=== PATIENT | male | born 1970 | race Caucasian/White ===

== ENCOUNTER 2019-01-01 16:35 | Observation (INO) ==
[2019-01-01] MEDS ORDERED: ZOFRAN IV PRN (17:09)
[2019-01-01 17:29] LABS: BASO# 0.01 X1000 (0.0-0.2); BASO% 0.1 % (0.0-0.8); EOS# 0.08 X1000 (0.0-0.7); HEMATOCRIT 46.5 % (42.0-52.0); HEMOGLOBIN 15.6 g/dL (14.0-18.0); IMM GRAN# 0.02 X1000 (0.0-0.04); IMM GRAN% 0.3 % (0.0-0.5); LYMPH% 11.5 % (20.5-51.1); MCH 32.8 PG (27-31); MCHC 33.5 g/dL (33-37); MCV 97.9 FL (81-99); MONO# 0.67 X1000 (0.11-0.59); MONO% 8.5 % (1.7-9.3); MPV 10.2 FL (7.4-10.4); NEUT# 6.16 X1000 (1.4-6.5); NEUT% 78.6 % (42.2-75.2); PLT 219 X1000 (130-400); RBC 4.75 XMIL (4.7-6.1); RDW 12.8 % (11.5-14.5); WBC 7.84 X1000 (4.8-10.8)
[2019-01-01 17:55] LABS: ALB/GLOB RATIO 1.4; ALBUMIN 3.8 g/dL (3.5-5.0); CALCIUM 8.9 mg/dL (8.8-10.2); CREATININE 1.5 mg/dL (0.7-1.2); DIRECT BILIRUBIN 0.2 mg/dL (0.00-0.20); MAGNESIUM 1.6 mg/dL (1.5-2.7); POTASSIUM 4.5 mmol/L (3.5-5.1); TOTAL BILIRUBIN 1.02 mg/dL (0.20-1.00); TOTAL PROTEIN 6.5 g/dL (6.3-8.3)
[2019-01-01] MEDS ORDERED: OFIRMEV 1000 MG/ISOTONIC SOLN 1,000 MG/100 ML BOTTLE IV PRN (18:03)
[2019-01-01] MEDS: LR 1,000 ML IV SCH (18:07)
[2019-01-01] MEDS ORDERED: PROTONIX IV ONE (18:15)
[2019-01-01] MEDS ORDERED: SODIUM CHLORIDE 0.9% INJ ONE (18:30)
[2019-01-01 18:55] LABS: URINE SOURCE CLEAN CATCH
[2019-01-01 18:58] LABS: BILIRUBIN URINE SMALL (NEGATIVE); BLOOD URINE NEGATIVE (NEGATIVE); COLOR YELLOW; GLUCOSE URINE NEGATIVE (NEGATIVE); KETONE URINE 10 mg/dL (NEGATIVE); LEUKOCYTES URINE NEGATIVE (NEGATIVE); NITRITE URINE NEGATIVE (NEGATIVE); PROTEIN URINE 100 mg/dL (NEGATIVE); SP GRAVITY URINE 1.026; TURBIDITY URINE CLEAR (CLEAR); UR EPITHELIAL CELLS <10 /HPF (<10); URINE BACTERIA NEGATIVE /HPF; URINE RBC <10 /HPF (<10); URINE WBC <10 /HPF (<10); UROBILINOGEN URINE NORMAL (NORMAL)
--- NOTE | 2019-01-01 19:31 | Diag Imaging Result Doc PS360 ---
EXAM: CT ABD/PELVIS W/ORAL CONT ONLY INDICATION: SBO TECHNIQUE: This exam was performed using automated exposure control, adjustment of mA or kV according to patient size, and/or use of iterative reconstruction technique. COMPARISON: None. FINDINGS: There is minimal subsegmental atelectasis at the lung bases. There are a few noncalcified nodules in the lingula measuring up to 6.8 mm, nonspecific but statistically most likely noncalcified granulomata in a low risk patient. There are multiple calcified granulomata throughout the spleen and a few in the liver. There is a very vague 1.4 cm low dense focus at the dome of the liver, nonspecific but possibly a cyst containing proteinaceous debris. The liver is unremarkable, otherwise. The gallbladder, pancreas, and adrenal glands are unremarkable. There has been a prior left nephrectomy. There is a tiny simple density cyst at the medial aspect of the right kidney. The right kidney is unremarkable, otherwise. Urinary bladder is largely nondistended and is grossly unremarkable, otherwise. There are multiple distended loops of small bowel containing air-fluid levels indicating small bowel obstruction. There is swirling of the mesentery and there appears to be a transition point in the mid abdomen near the midline (see image 92 of series 2). In the right lower quadrant, there are loops of small bowel exhibiting wall thickening indicating enteritis or possibly ischemic bowel. There is small to moderate volume ascites that is mainly layering in the pelvis. It surrounds loops of bowel, which may result in bowel wall thickening. The bony structures are intact. IMPRESSION: 1.Multiple distended loops of small bowel with an apparent transition point in the mid abdomen as described consistent with obstruction. 2.A few loops of small bowel in the right lower quadrant exhibiting wall thickening. Enteritis or possibly ischemic bowel cannot completely be excluded. Please correlate clinically. 3.Small to moderate volume ascites. 4.Other incidental/nonacute findings detailed above. Electronically signed by Jaren Crisostomo 01/01/2019 7:28 PM
[2019-01-01] MEDS ORDERED: CLOZARIL PO SCH (21:00)
--- NOTE | 2019-01-01 22:16 | HISTORY AND PHYSICAL ---
HISTORY OF PRESENT ILLNESS: This is a 48-year-old gentleman seen by me on referral by Dr. Rollins to my office. He had approximately 1 week of vague nausea, vomiting at times, diarrhea, abdominal discomfort. He attributed this to something he ate over the weekend, but his symptoms have persisted. He has had some bowel function that continues. No fevers. No jaundice. No blood in his stools. He has a history of renal cell carcinoma and had an open left nephrectomy. MEDICAL HISTORY: Schizophrenia, history of renal cell carcinoma, hypertension, hyperlipidemia. SURGICAL HISTORY: He has had a left nephrectomy several years ago, he is undergoing active treatment for this. SOCIAL HISTORY: No current tobacco, alcohol, drugs. He works. FAMILY HISTORY: Reviewed. Significant for Crohn disease. REVIEW OF SYSTEMS: Ten point negative. PHYSICAL EXAMINATION: VITAL SIGNS: Temperature 98.3 degrees, pulse 97, blood pressure 116/73, oxygen saturation 97%. GENERAL: He is alert, in no acute distress. HEENT: No scleral icterus. No cervical mass. CARDIOVASCULAR: Normal rate. PULMONARY: No increased work of breathing. ABDOMEN: Soft. There is a left flank incision. He is minimally distended, if any, nontender. There is no peritonitis. SKIN: Warm, dry. PSYCHIATRIC: He does have a little bit of a flat affect. NEUROLOGIC: No gross deficits. LYMPHATIC: No cervical or inguinal adenopathy. : He has a right inguinal hernia with otherwise normal external male genitalia. LABORATORY DATA: White count 7, hematocrit 46, platelets 219,000. Creatinine is elevated 1.5, this is above his baseline. Bilirubin is mildly elevated. AST, ALT, and lipase normal. I reviewed his CT scan [*]oral contrast, suggest possible transition point with some enteritis. ASSESSMENT AND PLAN: This is a 48-year-old gentleman with apparent enteritis, possible bowel obstruction. This would most likely be partial, I suspect that this may be more of a bacterial viral enteritis type picture. We will treat with antibiotics, IV hydration. He is dehydrated with elevated creatinine, and will monitor him closely. Hold off on nasogastric tube, as he is not vomiting, he is nondistended, and we will follow him closely. Will engage with Dr. Ortiz tomorrow for recommendation based off of his antibiotics. We will watch him closely. cc: Dayne Luciano MD
[2019-01-01] MEDS: ZOSYN 3.375 GM in NS 50 ML IV SCH (22:39)
[2019-01-02] MEDS: ZOSYN 3.375 GM in NS 50 ML IV SCH ×4 (03:04→21:42)
[2019-01-02] MEDS: LR 1,000 ML IV SCH ×2 (03:04→10:15)
[2019-01-02] MEDS ORDERED: CLOZARIL PO SCH (07:00)
[2019-01-02 09:52] LABS: CALCIUM 8.5 mg/dL (8.8-10.2); CREATININE 1.5 mg/dL (0.7-1.2); MAGNESIUM 1.7 mg/dL (1.5-2.7)
[2019-01-02 10:02] LABS: BASO# 0.03 X1000 (0.0-0.2); BASO% 0.4 % (0.0-0.8); EOS# 0.25 X1000 (0.0-0.7); EOS% 3.7 % (0.0-10.0); HEMATOCRIT 42.7 % (42.0-52.0); HEMOGLOBIN 14.1 g/dL (14.0-18.0); IMM GRAN# 0.02 X1000 (0.0-0.04); IMM GRAN% 0.3 % (0.0-0.5); LYMPH% 20.5 % (20.5-51.1); MCH 33.2 PG (27-31); MCV 100.5 FL (81-99); MONO# 0.54 X1000 (0.11-0.59); MONO% 7.9 % (1.7-9.3); MPV 10.6 FL (7.4-10.4); NEUT# 4.59 X1000 (1.4-6.5); NEUT% 67.2 % (42.2-75.2); PLT 200 X1000 (130-400); RBC 4.25 XMIL (4.7-6.1); RDW 13.1 % (11.5-14.5); WBC 6.83 X1000 (4.8-10.8)
[2019-01-02] MEDS ORDERED: PATIENT'S OWN MED PO SCH ×2 (13:15→21:00)
--- NOTE | 2019-01-02 14:43 | GENERAL SURGERY PROGRESS NOTE ---
DATE: 01/02/2019 SUBJECTIVE: Clinically he feels well. He is passing some gas. No further vomiting. Says he is hungry. No fevers. No tachycardia. OBJECTIVE: Vital Signs: Blood pressure 116/70. General: He is alert. Abdomen: Abdomen is soft, nontender, nondistended. LABORATORY: Creatinine is 1.5. White count 6, hematocrit 42, potassium down to 5.0. Urinalysis showed small bilirubin. ASSESSMENT AND PLAN: . I have discussed with Dr. Ortiz and Dr. Rollins, we will engage them. I will send infectious labs for possible enteric pathogens and start him on Zosyn for possible enteritis. Continue follow along. Give him clear liquids this evening after he has been evaluated by our consulting services, but otherwise no plans for emergent surgical intervention at this point. We will hold off on nasogastric tube. He is not really distended, not clinically obstructed at this point. cc: Dayne Luciano MD
[2019-01-02] MEDS: 1/2 NS 1,000 ML IV SCH ×2 (16:19→21:30)
--- NOTE | 2019-01-02 18:40 | HEMO/ONC CONSULTATION ---
DATE: 01/01/2019 REQUESTING PHYSICIAN: Dayne Luciano MD REASON FOR CONSULTATION: Metastatic renal cell carcinoma, patient known. HISTORY OF PRESENT ILLNESS: Mr. Rick is a 48-year-old male who is known to us, as we are currently treating him for metastatic renal cell carcinoma. He is currently on Votrient 800 mg daily. It looks like he had about a week's worth of vague nausea, vomiting, diarrhea and abdominal discomfort. His symptoms persisted and he reported to his head nurse, who then sent him to General Surgery, Dr. Luciano's office. The patient has now been admitted with a small- bowel obstruction. He is also on Zosyn for enteritis. The patient had a PET scan back on 11/08/2018, which showed no FDG avid neoplasm. His scans have been clear and he responded quite well to treatment. We have been consulted to help while he is in the hospital. PAST MEDICAL HISTORY: 1. Schizophrenia. 2. History of renal cell carcinoma, metastatic. Currently on Votrient 800 mg, with most recent scan showing no evidence of disease. 3. Hypertension. 4. Hyperlipidemia. 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 SOCIAL HISTORY: He denies any tobacco, alcohol or drug use. FAMILY HISTORY: Positive for Crohn disease. REVIEW OF SYSTEMS: Twelve-point review has been completed and is negative except for expressed in the HPI. PHYSICAL EXAMINATION: Vital Signs: Temperature 98.1 degrees, heart rate 78, respirations 22, blood pressure 116/70, O2 saturation 99% on room air. General: This is a male who is lying in his hospital bed. He is in no acute distress at this time. Head normocephalic, atraumatic. Eyes: Pupils equal, round and reactive. Ears, nose, throat negative. Mouth: Oral mucosa is normal. Cardiovascular: S1, S2 heard. No murmurs, gallops or rubs appreciated. Respiratory: Chest is clear. Normal respiratory effort. Gastrointestinal: Abdomen is soft, with minimal tenderness. Mild distention. Hypoactive bowel sounds. Musculoskeletal: No bony abnormalities. Extremities: No edema. Skin: No rash. Neurologic: The patient is alert and oriented. No focal motor deficits. LABORATORY DATA: White blood cells 6.83, hemoglobin 14.1, platelet count 200,000. DIAGNOSTIC DATA: CT scan shows small-bowel obstruction with small volume of ascites. ASSESSMENT AND PLAN: 1. Metastatic renal cell carcinoma. The patient has most recently been on Votrient 800 mg daily. Most recent scan done on 11/08/2018 showed no FDG avid neoplasm. We can hold treatment while the patient is in the hospital. We will hold as his acute issues are addressed. We will resume his Votrient based on his hospital course when we are able. 2. Small-bowel obstruction. Management per Dr. Luciano. 3. Schizophrenia. Continue current management per the primary team. 4. Enteritis. Continue intravenous antibiotics per Dr. Luciano. Thank you for consulting us on Mr. Rick. We will continue to follow along and adjust our treatment plan per his hospital course. Dictated by ANDERSON Hinson for Nia Lee MD cc: MD Dayne Valencia MD I have seen and examined Mr. Rick and agree with the above note as a reflection of my history, physical, assesment and plan. Nia ELLER
--- NOTE | 2019-01-02 19:00 | GASTROENTEROLOGY CONSULTATION ---
DATE: 01/02/2019 REQUESTING PHYSICIAN: Dayne Luciano MD REASON FOR CONSULTATION: Metastatic renal cell carcinoma, patient known. HISTORY OF PRESENT ILLNESS: Mr. Rick is a 48-year-old male with schizophrenia, HLD, HTN, left nephrectomy and metastatic renal cell carcinoma on Votrient who presents with approximately 1 week of lower abdominal pain with associated nausea, vomiting and 2 days of obstipation. No fever, chills, weight loss, rectal bleeding, melena. No CP, SOB, rashes, joint pain, oral ulcers, or vision changes. He was given hydrocodone from his PCP last week, which precipitated the nausea and vomiting. He reports similar episode in 06/2018 that resolved spontaneously. He reports that his symptoms have improved after receiving antibiotics. No prior colonoscopy. ROS: as per HPI, otherwise 12-point ROS was negative PAST MEDICAL HISTORY: 1. Schizophrenia. 2. History of renal cell carcinoma, metastatic. Currently on Votrient 800 mg, with most recent scan showing no evidence of disease. 3. Hypertension. 4. Hyperlipidemia. 5. 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 SOCIAL HISTORY: He denies any tobacco or drug use. He drinks about 3 alcoholic beverages on the weekends FAMILY HISTORY: Positive for Crohn disease in maternal aunt and cousin HOME MEDS: reviewed in chart, updated ALL: NKDA PHYSICAL EXAMINATION: VS: Vital Signs: Temperature 98.1 degrees, heart rate 78, respirations 22, blood pressure 116/70, O2 saturation 99% RA. GEN: awake, alert, NAD HEENT: anicteric, MMM, EOMI NECK: supple, no JVD CV: RRR, no mrg ABD: soft NT, minimal distension, BS present, no ascites EXT: no cce NEURO: nonfocal LABS; White blood cells 6.83, hemoglobin 14.1, platelet count 200,000. Cr 1.5; otherwise, CMP WNL UA neg CTAP with oral contrast 01/01 IMPRESSION: 1.Multiple distended loops of small bowel with an apparent transition point in the mid abdomen as described consistent with obstruction. 2.A few loops of small bowel in the right lower quadrant exhibiting wall thickening. Enteritis or possibly ischemic bowel cannot completely be excluded. Please correlate clinically. 3.Small to moderate volume ascites. 4.Other incidental/nonacute findings detailed above. ASSESSMENT AND PLAN: Mr. Rick is a 48-year-old male with schizophrenia, HLD, HTN, left nephrectomy and metastatic renal cell carcinoma on Votrient who presents with SBO from unclear etiology. He has had abdominal surgery; therefore, it's possibly secondary to adhesions. He also has FHx of Crohn's and there is suspected enteritis on CT; however, his presentation would be an typical presentation for Crohn's disease. Will obtain inflammatory markers. He will likely need diagnostic colonoscopy when his obstruction resolves #SBO: clears as per primary; continue empiric zosyn for now; avoid analgesics and constipating meds; serial ab exams, IVFs #Metastatic RCC: holding home chemo as per oncology; appreciate recs #Elevated Cr: CKD 2/2 to history of nephrectomy; renally dose medications #Schizophrenia: continue home meds #HTN: continue home BP meds #Enteritis: inflammatory markers as above; consider fecal calprotectin as this is more specific for IBD than inflammatory markers Thank you for this consult. Will follow with you. Please call with questions cc: Dayne Luciano MD [facility]
[2019-01-03] MEDS: ZOSYN 3.375 GM in NS 50 ML IV SCH ×2 (03:22→10:34)
[2019-01-03 08:01] VITALS: BP 120/71
[2019-01-03] MEDS ORDERED: PROTONIX IV SCH (08:30)
[2019-01-03] MEDS ORDERED: SODIUM CHLORIDE 0.9% INJ SCH (08:30)
--- NOTE | 2019-01-03 12:43 | GASTROENTEROLOGY PROGRESS NOTE ---
DATE: 01/03/2019 SUBJECTIVE: Resting in bed. His family was at bedside. I spoke to Dr. Angel Luciano at bedside. The patient is feeling better today. He is moving his bowels. He is eating. He denies any fevers, rigors, or chills. Abdominal pain is improved. OBJECTIVE: Vitals: Temperature 98.1 degrees, pulse 72, respiratory rate 18, blood pressure 120/71, saturating 99% on room air. Weight: Body weight 151 pounds 1.6 ounces. General Appearance: Patient is moderately built and moderately nourished, lying in bed, in no acute distress. HEENT: No pallor. No icterus. Neck: Supple. Abdomen: Soft, mild discomfort in the peritoneal region. No rebound or guarding. Extremities: No cyanosis, clubbing, edema. Neurological: Alert, awake, oriented x3. DIAGNOSTIC STUDIES: Hemoglobin 14.1, hematocrit 42.7, white count of 6.8, platelet count of 200,000, sedimentation rate of 29. CRP is 30.4 and a high-sensitivity CRP was 2.65, suggesting inflammation. Sodium 140, potassium 5, chloride 104, bicarbonate 27, anion gap 9, BUN of 18, creatinine 1, glucose of 90, calcium 8.5, magnesium 1.7, AST 21, ALT 20, alkaline phosphatase 77, total protein 6.5, albumin of 3.8. Lipase of 41. Urinalysis is positive protein, positive ketones, small bilirubin. Stool occult blood was negative and stool for white cells is none seen. Other stool studies are currently pending. CT of the abdomen and pelvis done on 01/01/2019 showed: 1. Multiple distended loops of small bowel with apparent transition point at the mid abdomen as described consistent with obstruction. 2. A few loops of small bowel in the right lower quadrant exhibiting bowel thickening, antritis, or possible ischemic bowel cannot be completely excluded. Small to moderate volume ascites. IMPRESSION AND PLAN: 1. History of renal cell carcinoma in 2016, status post left nephrectomy and then further evolution of a lesion in the right kidney in 2017, being on chemotherapy with Votrient by Dr. Nia Lee. The last PET scan, he is in remission. There was no evidence of any obvious disease per the patient's recall. Dr. Nia Lee is following. 2. Small-bowel obstruction. Dr. Angel Luciano is following. There is a question of adhesions, but this is being managed by Dr. Luciano conservatively. 3. Family history of Crohn's disease, and he also has some enteritis on the CT scan. His sedimentation rate and CRP are high. We will check IBD panel. We will also order fecal calprotectin. We will order a complete set of stool studies. 4. History of schizophrenia. Aware. 5. History of hypertension and hyperlipidemia. Aware. Patient will follow up in the clinic with us on discharge. We will continue him on GI prophylaxis with PPIs. The patient is also scheduled to see Dr. Luciano in 1 week. As an outpatient, he may need EGD and colonoscopy for further workup. We will also need to follow up on the labs so the patient was encouraged to follow up with us in 1 to 2 weeks of discharge. The above plans were discussed with the patient and family at bedside, and all of their questions were answered. Please call us with any further questions. cc: MD Dayne Smith MD John V. Irle, MD
--- NOTE | 2019-01-03 18:01 | GENERAL SURGERY PROGRESS NOTE ---
DATE: 01/03/2019 SUBJECTIVE: He is tolerating clear liquids. Bowels are functioning. No further nausea, vomiting, or abdominal pain. I reviewed his labs. Sedimentation rate is mildly elevated. He is being worked up further for Crohn disease. His white blood cells and occult blood for stool are negative. Clostridium difficile is negative. No parasites or ova noted. ASSESSMENT AND PLAN: A 48-year-old gentleman with apparent enteritis, possible inflammation of his bowels. This could be causing some degree of partial obstruction. We will keep him on a full liquid and soft diet, and encourage him to hold his medication that he has been taking for diarrhea, and he is going to undergo further endoscopic and serologic workup for Crohn disease as an outpatient. I would like to see him in a week. Otherwise, we will advance his diet and if he tolerates this, we will let him go home. cc: Dayne Luciano MD
== END 2019-01-03 16:12 | disposition home or self-care (01) ==
LOC: DIRADM → 4N 16:35
PROVIDERS: ADMIT Surgery; ATTEND Surgery
CPT/HCPCS: 74176; 80048; 80076; 81001; 82270; 83520; 83690; 83735; 83993; 85025; 85651; 86140; 86141; 86255; 86671; 87045; 87046; 87177; 87205; 87324; 88313; 89055; C9113; J2543; J7120; S0164

== ENCOUNTER 2019-12-22 14:39 | Inpatient (IN) ==
[2019-12-22] MEDS ORDERED: NS 1,000 ML IV ONE (14:57)
[2019-12-22] MEDS ORDERED: ZOFRAN IV ONE (15:04)
[2019-12-22] MEDS ORDERED: MORPHINE IV ONE (15:04)
[2019-12-22 15:12] LABS: BASO# 0.01 X1000 (0.0-0.2); BASO% 0.1 % (0.0-0.8); HEMATOCRIT 49.5 % (42.0-52.0); HEMOGLOBIN 16.2 g/dL (14.0-18.0); IMM GRAN# 0.02 X1000 (0.0-0.04); IMM GRAN% 0.2 % (0.0-0.5); LYMPH# 0.77 X1000 (1.2-3.4); LYMPH% 7.6 % (20.5-51.1); MCH 32.9 PG (27-31); MCHC 32.7 g/dL (33-37); MCV 100.4 FL (81-99); MONO# 0.72 X1000 (0.11-0.59); MONO% 7.1 % (1.7-9.3); MPV 10.5 FL (7.4-10.4); NEUT# 8.61 X1000 (1.4-6.5); PLT 243 X1000 (130-400); RBC 4.93 XMIL (4.7-6.1); RDW 13.6 % (11.5-14.5); WBC 10.13 X1000 (4.8-10.8)
[2019-12-22 15:29] LABS: ALB/GLOB RATIO 1.3; ALBUMIN 4.2 g/dL (3.5-5.0); CREATININE 2.7 mg/dL (0.7-1.2); POTASSIUM 5.3 mmol/L (3.5-5.1); TOTAL BILIRUBIN 1.8 mg/dL (0.20-1.00); TOTAL PROTEIN 7.5 g/dL (6.3-8.3)
--- NOTE | 2019-12-22 15:42 | Diag Imaging Result Doc PS360 ---
CHEST-1 VIEW - 12/22/2019 INDICATION: nausea and vomiting COMPARISON: 11/15/2016 FINDINGS: The lungs are normally expanded and clear. Heart size and mediastinal contours are normal. No pneumothorax or pleural effusion. IMPRESSION: Negative exam. Electronically signed by Matthew Zamora 12/22/2019 3:40 PM
--- NOTE | 2019-12-22 15:55 | Diag Imaging Result Doc PS360 ---
CT ABDOMEN/PELVIS W/O CONTRAST - 12/22/2019 INDICATION: RLQ abd pain COMPARISON: 01/01/2019, PET/CT 11/07/2019 FINDINGS: The lung bases are clear and the heart size is normal. Stable changes of left nephrectomy. The right kidney remains normal. There are several severely fluid distended loops of small bowel proximally. The transition point is at the anterior lateral peritoneal surface in the left upper quadrant. See image #[id number]. There is trace pelvic free fluid. Urinary bladder, prostate, and rectum are normal. Bones are intact. IMPRESSION: High-grade proximal small bowel obstruction. The transition point is in the anterior-lateral left upper quadrant. This exam was performed using automated exposure control, adjustment of mA or kV according to patient size, and/or use of iterative reconstruction technique Electronically signed by Matthew Zamora 12/22/2019 3:52 PM
--- NOTE | 2019-12-22 16:04 | PROVIDER DOCUMENTATION ---
This chart was entered by Bria Ferris Scribe, acting as scribe for Juventino Byrnes CRNP. HPI-Abdominal Pain/GI Problem - General Chief Complaint: Abdominal Pain Stated Complaint: STOMACH PAIN Time Seen by Provider: 12/22/19 14:41 Source: patient Allergies/Adverse Reactions: Patient Allergies Allergy/AdvReac Type Severity Reaction Status Date / Time No Known Allergies Allergy Verified 12/22/19 15:03 Home Medications: Home Medication List Medication Instructions Recorded Confirmed Last Taken Type Ferrous Sulfate 325 mg PO DAILY 01/02/19 12/22/19 06/04/19 History Magnesium 400 mg PO DAILY 01/02/19 12/22/19 06/04/19 History Ondansetron Odt [Zofran Odt] 8 mg PO Q6-8H PRN PRN 01/02/19 12/22/19 06/04/19 History ROSUVAstatin [Crestor] 10 mg PO DAILY 01/02/19 12/22/19 06/04/19 History Clozapine 300 mg PO DAILY 04/16/19 12/22/19 06/04/19 History Pazopanib HCl [Votrient] 1 tab PO 4XDAY 06/05/19 12/22/19 05/18/19 History Nebivolol HCl [Bystolic] 10 mg PO DAILY 12/22/19 12/22/19 Unknown History - History of Present Illness-ABD Nature of Presenting Problems: 49 y/o male with history of left nephrectomy and right renal cell CA presents to the ED with RLQ abdominal pain times two days as well as nausea and vomiting. The patient states last bowel movement last night. The patient was seen at [facility] and sent here. Abdominal Pain Onset Location: reports: RLQ Pain Radiation: reports: no radiation Onset/Duration: reports: 2 days ago Timing: reports: still present Modifying Factors: worse with: palpation Associated Symptoms: reports: nausea, vomiting. denies: fever/chills Last BM: last night Dark Stools Present?: reports: none noticed Rectal Bleeding: reports: none Similar Symptoms Previously?: No Recently seen or treated by another doctor?: No Review of Systems - Adult - REVIEW OF SYSTEMS - ADULT Constitutional: denies: chills, fever, weight gain Eyes: reports: no symptoms reported Ears, Nose, Mouth & Throat: reports: no symptoms reported Cardiovascular: reports: no symptoms reported Respiratory: reports: no symptoms reported Gastrointestinal: reports: abdominal pain, nausea, vomiting. denies: rectal bleeding Genitourinary: denies: dysuria, frequency, hematuria Musculoskeletal: reports: no symptoms reported Integumentary: reports: no symptoms reported Neurological: reports: no symptoms reported Psychiatric: reports: no symptoms reported Endocrine: reports: no symptoms reported Hematologic/Lymphatic: reports: no symptoms reported Allergic/Immunologic: reports: no symptoms reported All Other Systems: Reviewed and Negative Past History - Adult - PAST MEDICAL HISTORY-ADULT Review of Records: reports: Old Records Reviewed, Nursing Assessment Review, Medications Reviewed Cardiovascular: reports: HTN Respiratory: reports: denies history Gastrointestinal: reports: denies history Genitourinary: reports: other (RCC) Musculoskeletal: reports: denies history Psychiatric: reports: psychiatric problems Endocrine/Immune: reports: denies history Other Conditions: reports: other cancer - PRIOR SURGERIES/PROCEDURES Surgical/Procedure History: denies: recent surgery - IMMUNIZATION STATUS Childhood Immunizations: See Nurse Assessment Flu Vaccine: See Nurse Assessment - FAMILY HISTORY Family History: reviewed, not pertinent - SOCIAL HISTORY Smoking: quit greater than 1 year Substance Use: alcohol Alcohol Use Frequency: occasionally Living Situation: alone Physical Exam-General - PHYSICAL EXAM-ADULT Initial Vital Signs Reviewed: Yes - CONSTITUTIONAL General Appearance: alert, no apparent distress - HEAD, EARS, NOSE, MOUTH & THROAT HENMT: normocephalic/atraumatic, moist mucous membranes - NECK Neck: full range of motion, supple - RESPIRATORY Respiratory: lungs clear, normal breath sounds. negative: rales, rhonchi, wheezing - CARDIOVASCULAR Cardiovascular: regular rate, rhythm, no edema, no gallop - GASTROINTESTINAL (ABDOMEN) Abdominal Exam: non tender, soft, tenderness (RLQ worse with rebound), other (decreased bowel sounds) - MUSCULOSKELETAL Extremity: normal gait - SKIN Integumentary: normal color, warm/dry. negative: diaphoresis - NEUROLOGIC Neurologic: grossly normal - PSYCHIATRIC Psych/Mental Status: oriented x 3 Progress - PLAN OF CARE/RESULTS Progress/Plan/Lab Results: Vital Signs - 8 hr 12/22/19 14:44 Temperature 98.0 F Pulse Rate 115 H Respiratory Rate 16 Blood Pressure 119/79 O2 Sat by Pulse Oximetry 97 Orders Category Date Time Status Saline Loc DIRECTED Care 12/22/19 14:43 Active NPO Diet 12/22/19 14:43 Active cxr [CHEST-1 VIEW] [RAD] Stat Exams 12/22/19 14:44 Ordered AMYLASE [CHEM] Stat Lab 12/22/19 14:43 Uncollected CBC WITH ELECTRONIC DIFF [HEME] Stat Lab 12/22/19 14:43 Uncollected COMPREHENSIVE METABOLIC PANEL [CHEM] Stat Lab 12/22/19 14:43 Uncollected LIPASE [CHEM] Stat Lab 12/22/19 14:43 Uncollected URINALYSIS W/POSS RFLX CULT [URINALYSIS] Stat Lab 12/22/19 14:43 Uncollected Result Diagrams: 12/22/19 14:59 12/22/19 14:59 - XRAY 1 XRAY Study: Chest (CHEST-1 VIEW - 12/22/2019 INDICATION: nausea and vomiting COMPARISON: 11/15/2016 FINDINGS: The lungs are normally expanded and clear. Heart size and mediastinal contours are normal. No pneumothorax or pleural effusion. IMPRESSION: Negative exam. Electronically signed by Matthew Zamora 12/22/2019 3:40 PM) Impression: See EMR Report XRAY Interpretation: nad. - CT/MRI 1 CT Study: Abdomen, Pelvis Impression: Abnormal (CT ABDOMEN/PELVIS W/O CONTRAST - 12/22/2019 INDICATION: RLQ abd pain COMPARISON: 01/01/2019, PET/CT 11/07/2019 FINDINGS: The lung bases are clear and the heart size is normal. Stable changes of left nephrectomy. The right kidney remains normal. There are several severely fluid distended loops of small bowel proximally. The transition point is at the anterior lateral peritoneal surface in the left upper quadrant. See image #[id number]. There is trace pelvic free fluid. Urinary bladder, prostate, and rectum are normal. Bones are intact. IMPRESSION: High-grade proximal small bowel obstruction. The transition point is in the anterior-lateral left upper quadrant. This exam was performed using automated exposure control, adjustment of mA or kV according to patient size, and/or use of iterative reconstruction technique Electronically signed by Matthew Zamora 12/22/2019 3:52 PM) - CONSULTS/PCP/HOSPITALIST Notification #1 *Consult/PCP/Hospitalist*: Dr. Luciano Time Discussed: 16:01 Reason/Comments: NG tube and admit Consult Disposition: Admit #2 Consult: Hospitalist paged at 1601 Reason/Comments: SBO Consult Disposition: Admit Departure - Departure Date of Disposition Decision: 12/22/19 Time of Disposition Decision: 16:02 DIAGNOSIS: Small bowel obstruction Disposition: ADMITTED INPATIENT 09 Certified Medical Emergency: Emergent Condition: Good Additional Instructions: ED Follow Up Instructions: You have been treated by a care provider in the Emergency Department. These instructions are being provided to you so you can have an understanding of how to care for yourself upon discharge. Upon discharge from the Emergency Department, you are responsible for making arrangements for follow-up care by a physician of your choice. Take all prescribed medications as directed. Return to the Emergency Department immediately for any new or worsening symptoms. You may call the Physician Referral phone number at [phone] to obtain a list of Physicians who are taking new patients. Referrals and Follow-Ups: Jaren Boogie MD [Primary Care Provider] - - Critical Care Note This patient required my direct & personal management of CC.: No Attestation - Physician/ LADARIUS Attestation Patient care was provided by Advanced Practice Provider:: Yes Advanced Practice Provider:: Juventino Byrnes Advanced Practice Provider documentation review:: The Mid-level provider documentation, treatment plan and medical decision making was reviewed by the physician who agrees with all treatment and medical decision making by the P. The physician spent face to face time with patient:: No Advanced Practice Provider documentation review:: Supervising physician onsite and consulted in the evaluation and care of this patient. The physician did not have a face to face encounter with the patient. This chart was documented by the indicated scribe, (Bria Ferris Scribe) and accurately reflects the services I performed and decisions made by me, Juventino Byrnes CRNP, as attested by the provider's signature.
--- NOTE | 2019-12-22 17:26 | HISTORY AND PHYSICAL ---
ADDENDUM: I have seen and examined Mr. Rick today in the emergency room. Mr. Rick presented from [facility] after he presented over there because of abdominal pain for about 3 days associated with some nausea and vomiting. He was sent over here for medical evaluation. Upon presenting to the emergency room he was he was evaluated including a CT scan of the abdomen and pelvis without contrast which shows a high-grade proximal small-bowel obstruction. Transition point is in the anterior lateral left upper quadrant. He also has significant amount of constipation. SUBJECTIVE: Mr. Rick has had a similar presentation in the past. He is some has been evaluated on multiple occasions by Dr. Luciano. He still complains of abdominal pain, but he said it is getting a lot better. OBJECTIVE: Vital signs: Blood pressure is 116/82, pulse of 102, respiration is 19, temperature 98.0 degrees. PHYSICAL EXAMINATION: GENERAL: Mr. Rick is a 49-year-old, gentleman. He is in bed. HEENT: Mucosa is pink and dry. Anicteric. Acyanotic. NECK: Supple. CHEST: Clear to auscultation. GASTROINTESTINAL: Abdomen is soft, minimally distended and tender almost everywhere, but no guarding, no rebound. There seems to be a mild hernia defect in the epigastric region. He also has a left side upper, mid flank scar from previous nephrectomy. There is also a small scar on the right inguinal region. LABORATORY DATA: Has been reviewed. Creatinine is 2.7. That is up from 1.8 in 2019. IMAGING STUDIES: A chest x-ray was negative. A CT scan of the abdomen and pelvis is showing a high-grade proximal small-bowel obstruction. ASSESSMENT: 1. High-grade proximal small-bowel obstruction. Patient continues to be mildly symptomatic. I think it to be reasonable to put in an nasogastric tube, keep her in N.P.O., continue with IV fluids, pain control, and await for further recommendations from surgery. 2. Constipation. We will start the patient on Dulcolax suppository for lower stimulation. 3. Clinical volume depletion. We will continue with IV fluids. 4. Acute on chronic renal failure. The patient is a single renal patient. We will continue with IV fluids and monitor this very closely. We will involve nephrology if the kidney functions continues to get any worse. 5. Suspected small epigastric hernia. 6. History of left renal cell carcinoma, status post left nephrectomy. Please refer to the details of the history and physical that has been dictated by the CLINICAL RESEARCH SPECIALIST in the chart. I have discussed the plan with her. I have also discussed my plan and findings with Mr. Rick and he voiced understanding. I have also discussed briefly the patient's care with Dr. Luciano who is the surgeon. cc: Marques Ballard MD
[2019-12-22] MEDS ORDERED: NS 1,000 ML IV SCH (17:45)
--- NOTE | 2019-12-22 18:13 | HISTORY AND PHYSICAL ---
CHIEF COMPLAINT: Abdominal pain. HPI: This is a 49-year-old gentleman with a history of left renal cell carcinoma. who is status post left nephrectomy. Now with recurring right renal cell carcinoma - currently on Votrient followed by Dr. Nia Lee. He presents to theemergency room from med-surg walk-in clinic complaining of right lower quadrant pain for 2 days with nausea, vomiting. He was found to have a high-grade proximal small-bowel obstruction with a transition point in the anterior lateral left upper quadrant on CT scan. NG tube has been inserted. Dr. Angel Luciano has been consulted. He is being admitted for further evaluation and treatment. PAST MEDICAL HISTORY: 1. Renal cell carcinoma of right kidney status post nephrectomy with recurrent renal cell carcinoma to the left kidney currently on oral chemotherapy. 2. Hypertension. 3. Chronic kidney disease. 4. Prior small-bowel obstruction. SURGICAL HISTORY: 1. Left nephrectomy. 2. Hernia repair right inguinal hernia. SOCIAL HISTORY: He denies any alcohol, tobacco or illicit drug use. ALLERGIES: No known drug allergies. HOME MEDICATIONS: List will be obtained by the nursing staff once verified review and restart as appropriate. REVIEW OF SYSTEMS: Discussed with patient with pertinent positives stated in HPI. He denied any syncope or dizziness, any chest pain or palpitations, any black or bloody vomitus or stools, any diarrhea, any cough, shortness of breath, cough, fever, chills, chest pain, palpitations. PHYSICAL EXAMINATION: GENERAL: This is a 49-year-old gentleman who is sitting up in the stretcher in the emergency room in no distress. VITAL SIGNS: Blood pressure is 116/82 with a heart rate of 100, respirations are 18, temperature is 98 degrees with room air saturations 94 to 97 percent. HEENT: Pupils equal, round, react to light. EOMs are intact sclerae anicteric. Head is normocephalic, atraumatic. Mucous membranes are dry. NECK: Supple. Trachea midline. CARDIOVASCULAR: Regular rate and rhythm. S1 and S2 appreciated. No lower extremity edema. Calves nontender bilateral, peripheral pulses palpable x4 extremities. PULMONARY: Breath sounds are clear with no increased work of breathing noted. Chest rise fall symmetric with respiration. GASTROINTESTINAL: Abdomen soft, tender generalized with bowel sounds in all 4 quadrants. NEUROLOGIC: He is alert and oriented x3. SKIN: Warm and dry. LABS: WBC is 10.1 with hemoglobin 16.2, hematocrit 49.5, platelets 243,000. Sodium 135, potassium 5.3, BUN 45, creatinine 2.7 with a glucose of 113, total bilirubin is 1.80, lipase is 11. CT scan of the abdomen and pelvis revealed high-grade proximal small-bowel obstruction with transition point in the anterior lateral left upper quadrant. ASSESSMENT AND PLAN: 1. High-grade small bowel obstruction. NPO. NG tube has been placed. Will continue to low intermittent suction. Dulcolax suppositories q.[address] Angel Luciano has been consulted. 2. Abdominal pain, morphine p.r.n. for pain. 3. Nausea, vomiting, Zofran. 4. Constipation. Will continue Dulcolax suppository for lower stimulation. 5. Clinical volume depletion. Continue with IV fluids. 6. Acute on chronic renal failure in a single kidney patient. Continue with IV fluids, renal dose any medications. Monitor labs daily and consult Nephrology if kidney function worsens. 7. Hyperkalemia. Will hydrate and monitor labs and treat appropriately. 8. History of renal cell carcinoma on the right in a person who is currently taking Votrient. We will hold this at present. Of note, the patient is followed by Dr. Nia Lee. 9. For DVT prophylaxis use SCDs, GI prophylaxis Protonix. Plan was discussed with Dr. Ballard Further treatments pending hospital course. Dictated by MOISES Nettles for Marques Ballard MD cc: MOISES Nettles MD [facility]
--- NOTE | 2019-12-22 18:17 | Diag Imaging Result Doc PS360 ---
CHEST-1 VIEW - 12/22/2019 5:34 PM INDICATION: NGT Placement COMPARISON: 12/22/2019 at 3:23 PM FINDINGS: There is a nasogastric tube in good position fully in the stomach. IMPRESSION: Nasogastric tube in good position the stomach. Electronically signed by Matthew Zamora 12/22/2019 6:15 PM
[2019-12-22] MEDS: NS 1,000 ML IV SCH (20:54)
[2019-12-22] MEDS: SODIUM CHLORIDE 0.9% INJ SCH (20:54)
[2019-12-22] MEDS: PROTONIX IV SCH (20:54)
[2019-12-22] MEDS: DULCOLAX PR SCH ×3 (20:55→22:50)
--- NOTE | 2019-12-22 21:58 | GENERAL SURGERY CONSULTATION ---
DATE: 12/22/2019 CHIEF COMPLAINT: Nausea, vomiting, abdominal pain. REASON FOR CONSULTATION: High-grade bowel obstruction. HISTORY OF PRESENT ILLNESS: This 49-year-old gentleman is known to me. He has had previous attempted laparoscopic hernia repairs, found to have callus ascites related to a prior nephrectomy for renal cell carcinoma and subsequently underwent an open right inguinal hernia repair. He has had intermittent partial obstructions since over the last year, but is for the most part has resolved these with the initiation of a low residual diet. He developed, over the course of the day yesterday, colicky abdominal pain, nausea, vomiting, although he continues to have bowel function. He came the ER where bowel obstruction was diagnosed via CT scan. MEDICAL HISTORY: 1. Schizophrenia, history of renal cell carcinoma. PET scans have been clear. 2. Recurrent partial small bowel obstruction. Chronic kidney disease. The related nephrectomy and hypertension. SURGICAL HISTORY: He has had a left nephrectomy, open right inguinal hernia repair, diagnostic laparoscopy. SOCIAL HISTORY: He does smoke occasionally. Denies any alcohol no drugs medications were reviewed. He is on chronic chemotherapy agent for his renal cell carcinoma. REVIEW OF SYSTEMS: Ten point review of systems performed and negative otherwise mentioned HPI. PHYSICAL EXAMINATION: Vital signs: On exam, he is afebrile. Pulse in the 90s. Blood pressure 110/71, oxygen saturation 95%. General: He is alert in no acute distress. HEENT: No scleral icterus. No cervical mass. Cardiovascular: Normal rate. Pulmonary: No increased work of breathing. Abdomen: Soft, nontender, nondistended. Integument: Warm and dry. Psychiatric: Similar to flat affect, which is near his baseline. Peripheral vascular: No lower extremity edema. Lymphatic: No cervical axillary or inguinal adenopathy. Exam: There is a right inguinal hernia. Incision is well healed with no evidence of recurrent hernia. LABORATORIES: White count 10, hematocrit 49, platelets 243,000. Creatinine is 2.7, glucose 113, bilirubin is mildly elevated at 1.80, lipase 111. I reviewed his CT scan. ASSESSMENT AND PLAN: This is a 49-year-old gentleman with a bowel obstruction. Placed him on nasogastric tube and continue bowel rest with IV fluids and follow his progress. It is possible that he may require exploratory laparotomy as these have been recurrent, but at the time of diagnostic lap, there was no real significant intra-abdominal adhesions. We will follow along. His abdominal exam is benign at this juncture. cc: Dayne Luciano MD MTDD
[2019-12-22 23:00] LABS: URINE SOURCE CLEAN CATCH
[2019-12-22 23:04] LABS: BILIRUBIN URINE SMALL (NEGATIVE); BLOOD URINE NEGATIVE (NEGATIVE); COLOR YELLOW; GLUCOSE URINE NEGATIVE (NEGATIVE); KETONE URINE 40 mg/dL (NEGATIVE); LEUKOCYTES URINE NEGATIVE (NEGATIVE); NITRITE URINE NEGATIVE (NEGATIVE); PH URINE 5.5; PROTEIN URINE 50 mg/dL (NEGATIVE); SP GRAVITY URINE 1.027; TURBIDITY URINE CLEAR (CLEAR); UR EPITHELIAL CELLS <10 /HPF (<10); URINE BACTERIA NEGATIVE /HPF; URINE RBC <10 /HPF (<10); URINE WBC <10 /HPF (<10); UROBILINOGEN URINE NORMAL (NORMAL)
[2019-12-23] MEDS: NS 1,000 ML IV SCH ×3 (04:43→21:50)
[2019-12-23] MEDS: DULCOLAX PR SCH ×5 (04:44→23:40)
[2019-12-23 06:57] LABS: BASO# 0.02 X1000 (0.0-0.2); BASO% 0.4 % (0.0-0.8); EOS% 1.8 % (0.0-10.0); HEMATOCRIT 42.5 % (42.0-52.0); HEMOGLOBIN 14.1 g/dL (14.0-18.0); LYMPH# 0.92 X1000 (1.2-3.4); LYMPH% 16.2 % (20.5-51.1); MCH 33.7 PG (27-31); MCHC 33.2 g/dL (33-37); MCV 101.4 FL (81-99); MONO# 0.45 X1000 (0.11-0.59); MONO% 7.9 % (1.7-9.3); MPV 11.1 FL (7.4-10.4); NEUT% 73.7 % (42.2-75.2); PLT 186 X1000 (130-400); RBC 4.19 XMIL (4.7-6.1); RDW 13.8 % (11.5-14.5); WBC 5.69 X1000 (4.8-10.8)
[2019-12-23 07:23] LABS: ALB/GLOB RATIO 1.1; ALBUMIN 3.3 g/dL (3.5-5.0); CALCIUM 8.7 mg/dL (8.8-10.2); CREATININE 1.9 mg/dL (0.7-1.2); MAGNESIUM 2.3 mg/dL (1.5-2.7); POTASSIUM 4.5 mmol/L (3.5-5.1); TOTAL BILIRUBIN 1.59 mg/dL (0.20-1.00); TOTAL PROTEIN 6.3 g/dL (6.3-8.3)
--- NOTE | 2019-12-23 08:42 | Diag Imaging Result Doc PS360 ---
KUB ABDOMEN - 12/23/2019 INDICATION: SBO COMPARISON: CT from 12/22/2019 FINDINGS: There is no visible abnormality. IMPRESSION: No visible abnormality. Electronically signed by Matthew Zamora 12/23/2019 8:40 AM
--- NOTE | 2019-12-23 14:15 | GENERAL SURGERY PROGRESS NOTE ---
DATE: 12/23/2019 SUBJECTIVE: He had some bowel function this morning following suppository. No fevers. No tachycardia. NG tube output has been moderate. OBJECTIVE: Abdomen: His abdomen is soft, nontender, nondistended. Cardiovascular: Normal rate. HEENT: His NG tube is in place with some bilious fluid that is quite thin. Suspect he is drinking a lot. LABORATORY DATA: White count 5, hematocrit 42. Creatinine is down to 1.9 from 2.7. ASSESSMENT AND PLAN: A gentleman with a bowel obstruction. This has been a recurrent issue for him. We will continue stimulation for below, NG tube decompression, and bowel rest. cc: Dayne Luciano MD
[2019-12-23] MEDS: MORPHINE IV PRN (15:24)
--- NOTE | 2019-12-23 15:41 | PROGRESS NOTE ---
DATE: 12/23/2019 SUBJECTIVE: I have seen and examined Mr. Rick today. Mr. Rick refers to be doing okay. Still has the NG tube in place. Said abdominal pain is improving. He also said he did have some bowel movement. OBJECTIVE: Current Vital Signs: Blood pressure is 118/77, pulse of 89, respirations are 18, temperature is 98.4 degrees, the patient is saturating 98% on room air. General Examination: Mr. Rick is a 49-year-old, gentleman. He is in bed. No distress. HEENT: Mucosa is pink and moist. Anicteric. Acyanotic. Neck: Supple. Chest: Good air entry bilaterally. There are no crepitations. No rhonchi. Cardiovascular: Regular rate and rhythm. No murmurs, no rubs, no gallops. GI: Abdomen is soft. Minimally distended. There is no guarding, no rebound. There is a mild hernia defect in the epigastric region. There is also a left flank scar from previous nephrectomy. There is a small right inguinal scar from herniorrhaphy. SONAR TECHNICIAN: The patient is awake, alert, and oriented. Laboratory Data: WBC is 5.69, hemoglobin is 14.1, platelet count of 186,000. Chemistry is also reviewed. Potassium is down to 4.5, creatinine is down to 1.9. ASSESSMENT: 1. High-grade proximal small-bowel obstruction. The patient is currently nothing per oral. Nasogastric tube is in place. We will continue with intravenous fluids. Surgery is on board. 2. Constipation. We are going to continue with Dulcolax suppository. 3. Clinical volume depletion, improving. 4. Acute on chronic renal failure. Creatinine is down to 1.9. The patient seems to have a baseline of about 1.5. We are going to continue with the intravenous fluids to see where it goes. 5. Suspected small epigastric hernia noted. 6. History of left renal cell carcinoma, status post left nephrectomy. PLAN: In general, Mr. Rick is day 1 in the hospital. He has been diagnosed with a small-bowel obstruction. It appears this is a recurrent issue for him as per surgery documentation. For now, we are going to continue with conservative management and re-evaluate him tomorrow. We will also follow up with further recommendations from surgery. cc: Marques Ballard MD
[2019-12-23] MEDS: SODIUM CHLORIDE 0.9% INJ SCH (18:25)
[2019-12-23] MEDS: PROTONIX IV SCH (18:25)
[2019-12-24] MEDS: MORPHINE IV PRN ×5 (01:54→20:24)
[2019-12-24] MEDS: NS 1,000 ML IV SCH ×3 (04:11→20:25)
[2019-12-24 06:15] LABS: HEMATOCRIT 46.6 % (42.0-52.0); HEMOGLOBIN 14.8 g/dL (14.0-18.0); MCH 33.3 PG (27-31); MCHC 31.8 g/dL (33-37); MCV 104.7 FL (81-99); MPV 10.7 FL (7.4-10.4); RBC 4.45 XMIL (4.7-6.1); RDW 13.8 % (11.5-14.5); WBC 0.86 X1000 (4.8-10.8)
[2019-12-24 06:29] LABS: ALBUMIN 3.3 g/dL (3.5-5.0); CALCIUM 9.2 mg/dL (8.8-10.2); CREATININE 1.5 mg/dL (0.7-1.2); PHOSPHORUS 2.6 mg/dL (2.7-4.5); POTASSIUM 4.5 mmol/L (3.5-5.1)
--- NOTE | 2019-12-24 07:33 | Diag Imaging Result Doc PS360 ---
KUB ABDOMEN - 12/24/2019 INDICATION: SBO COMPARISON: 12/23/2019 FINDINGS: There is no visible abnormality. IMPRESSION: No visible abnormality. Electronically signed by Matthew Zamora 12/24/2019 7:31 AM
[2019-12-24] MEDS: ZOSYN 3.375 GM in NS 50 ML IV SCH ×3 (08:52→20:24)
--- NOTE | 2019-12-24 08:56 | GENERAL SURGERY PROGRESS NOTE ---
DATE: 12/24/2019 SUBJECTIVE/OBJECTIVE: Worsening abdominal pain this morning. He had a fever of 102.1. His NG tube remains moderate output. On exam, he is alert. He is moving around pretty well in the bed. His abdomen is more distended, a little more firm. I do not see judy peritonitis, but this has been a change. White count down to 0.86. His creatinine is down to 1.5. ASSESSMENT AND PLAN: This is a 49-year-old gentleman admitted with a bowel obstruction. He has a history of renal cell carcinoma. Given his change in bowel exam and failure to improve with his fever, now with leukopenia, I have recommended exploration. I have talked to Dr. Lee. He has been off of his chemotherapy for the last several days. She did does not feel as though this is contributing to his leukopenia and that this may be more of an acute phase reactant. We discussed risk of bleeding, possibility of bowel resection, possibility of anastomotic leak, anticipated recovery, possibility of an ostomy. He understands all this and consents. I posted him for exploratory laparotomy. I have started him on Zosyn. I worry he could develop some ischemia of his bowel. It is doubtful he has a perforation, but possible. cc: Dayne Luciano MD
--- NOTE | 2019-12-24 09:27 | PROGRESS NOTE ---
DATE: 12/24/2019 SUBJECTIVE: Mr. Rick is a 49-year-old, patient of Dr. Jaren Boogie, who presented on 12/22/2019, [facility] after a couple days of abdominal pain, about 3 days of some nausea and vomiting. He came to the emergency room. CT of the abdomen and pelvis without contrast showed high-grade proximal small-bowel obstruction. Transition point is in the anterolateral left upper quadrant. He had a significant amount of constipation. He had acute on chronic renal failure. He was given IV fluids, required an NG tube, placed him on continued bowel rest, but he had a miserable night last night, and so I think the plan is to do exploratory laparotomy. His previous attempt at laparoscopic hernia repairs, found to have callus, ascites related to prior nephrectomy for renal cell carcinoma. Subsequently, he underwent open right inguinal hernia repair. He has had intermittent partial bowel obstruction over most of the last year. He is pretty miserable, sitting up in bed. OBJECTIVE: Vital Signs: His temp did get up to 102.1, pulse was 100, respirations 20, blood pressure 140/80. Lungs: Clear in all lung rawls. Cardiovascular: Regular rhythm and rate without murmur or S3. Abdomen: Soft. Skin: Warm and dry. MEDICATIONS: The patient is getting Protonix 40 mg IV every 24 hours, and he is on Zosyn 3.375 grams IV every 6 hours. LABORATORY DATA: Today, white count has really dropped to 860 (I am not sure if this is a lab error, but will repeat it), hematocrit 46, platelet count 203,000. Sodium 141, potassium 4.5, chloride 103, BUN 25, creatinine 1.5, which has come down from 2.7. ASSESSMENT AND PLAN: A 49-year-old with small-bowel obstruction. He has a history of renal cell carcinoma. Given his fever and his now leukopenia, he is going to undergo exploration. Dr. Luciano has talked to Dr. Lee. He has been off of his chemotherapy for the last several days, but she does feel like the chemotherapy is contributing to leukopenia. I think the plan is for surgery today. He was started on Zosyn. He could develop some ischemic bowel. It is doubtful that he has perforation at this time. cc: Eric Escoto MD
[2019-12-24] MEDS ORDERED: FENTANYL ONE (10:45)
[2019-12-24] MEDS ORDERED: DIPRIVAN 1% ONE (10:45)
[2019-12-24] MEDS ORDERED: ROBINUL ONE ×2 (10:48→12:42)
[2019-12-24] MEDS ORDERED: QUELICIN (DOSE) ONE (10:48)
[2019-12-24] MEDS ORDERED: XYLOCAINE-MPF 2% ONE (10:48)
[2019-12-24] MEDS ORDERED: NEO-SYNEPHRINE ONE (11:45)
[2019-12-24] MEDS ORDERED: SODIUM CHLORIDE 0.9% 10 ML ONE (11:45)
[2019-12-24] MEDS ORDERED: ZEMURON ONE ×3 (11:52→12:28)
[2019-12-24] MEDS ORDERED: PITRESSIN ONE (11:58)
[2019-12-24] MEDS ORDERED: ZOFRAN ONE (12:41)
[2019-12-24] MEDS ORDERED: NEOSTIGMINE ONE ×2 (12:43→13:09)
[2019-12-24] MEDS ORDERED: BRIDION ONE (13:22)
[2019-12-24 13:31] LABS: URINE SOURCE CATH
[2019-12-24] MEDS: DILAUDID ONE ×4 (13:36→14:05)
[2019-12-24 13:45] LABS: UR EPITHELIAL CELLS <10 /HPF (<10); URINE BACTERIA NEGATIVE /HPF; URINE RBC <10 /HPF (<10); URINE WBC TNTC /HPF (<10)
[2019-12-24 13:48] LABS: BILIRUBIN URINE SMALL (NEGATIVE); BLOOD URINE NEGATIVE (NEGATIVE); COLOR YELLOW; GLUCOSE URINE NEGATIVE (NEGATIVE); KETONE URINE 100 mg/dL (NEGATIVE); LEUKOCYTES URINE NEGATIVE (NEGATIVE); NITRITE URINE NEGATIVE (NEGATIVE); PH URINE 5.5; PROTEIN URINE 100 mg/dL (NEGATIVE); SP GRAVITY URINE 1.025; TURBIDITY URINE HAZY (CLEAR); UROBILINOGEN URINE NORMAL (NORMAL)
[2019-12-24] MEDS ORDERED: BLISTEX MEDICATED BERRY LIP BALM ONE (13:57)
--- NOTE | 2019-12-24 15:22 | OPERATIVE NOTE ---
PROCEDURE DATE: 12/24/2019 PREOP DIAGNOSIS: 1. Small-bowel obstruction with peritonitis. 2. Renal cell carcinoma history. POSTOP: 1. Small-bowel obstruction with peritonitis. 2. Renal cell carcinoma history. PROCEDURE PERFORMED: Exploratory laparotomy with small-bowel resection. QUANTITATIVE RESEARCHER: Dr. Sims was present for the entirety of the case. He facilitated exposure, lysis of adhesions and bowel resection with anastomosis. ESTIMATED BLOOD LOSS: 50 mL. SPECIMENS: Portion of small bowel. FINDINGS: There was a dense adhesion to his left nephrectomy incision with a loop of bowel a with high-grade obstruction perforation just proximal to this. There was also a loop of bowel stuck to the nephrectomy bed. OPERATIVE NOTE: Risks, benefits, and alternatives were discussed, patient consented to procedure, seen preoperatively. Surgical site was confirmed. Was taken urgently to the operating room where a Camara catheter was placed. He had a nasogastric tube in place and his abdomen was prepped with chlorhexidine solution draped usual fashion. After time-out a midline incision was made carried down the fascia. The fascia was incised along the midline, the abdomen was entered open controlled fashion. We suctioned all the succus in each quadrant and Reynaldo wound protector was placed. We eviscerated the small bowel, identified the dense adhesion in the left lateral flank, took this down. At this point it became evident there was a perforation here. We ran the small bowel, colon, appendix is normal, stomach and duodenum were normal. We did whipstitch this perforation closed further contamination. There was another after eviscerated the small bowel there was a loop of small bowel stuck down the nephrectomy bed that we mobilized up without injury. At this point we selected a proximal distal transection point and a blue load PHYLICIA 80 mm stapler was used to divide this and the mesentery was divided with 3-0 Vicryl ligatures. After both proximal, distal portion small bowel was well perfused a corner of each staple line was removed and a stapled [id number] functional end-to-end anastomosis created with 1 fire of the 80 mm blue load stapler and a 2nd to close the common enterotomy. We imbricated the corners with 3- 0 Vicryl and placed an off-loading stitch with 3-0 Vicryl. The mesenteric defect was closed with silk suture. Was placed back in neutral position small bowel covered with omentum. We copiously irrigated with several liters of warm saline until clear. There was no further bleeding noted. The bowel was well perfused. The anastomosis was patent. There was no tension. At this point we closed the fascia with #1 running looped PDS suture. There was a small fat containing hernia that we debrided back to healthy fascia and closed with our fascial closure. Our gloves were changed prior to wound closure. We irrigated the superficial wound closed with surgical clips. We confirmed NG tube was in good position. The small bowel was decompressed prior to the bowel resection via the NG tube. Counts correct. He was woken transferred recovery, I spoke with family. cc: Dayne Luciano MD
[2019-12-24 17:01] LABS: BASO# 0.01 X1000 (0.0-0.2); BASO% 0.5 % (0.0-0.8); HEMATOCRIT 42.8 % (42.0-52.0); HEMOGLOBIN 13.5 g/dL (14.0-18.0); LYMPH% 10.9 % (20.5-51.1); MCH 32.8 PG (27-31); MCHC 31.5 g/dL (33-37); MCV 104.1 FL (81-99); MONO# 0.26 X1000 (0.11-0.59); MONO% 14.2 % (1.7-9.3); MPV 10.4 FL (7.4-10.4); NEUT# 1.36 X1000 (1.4-6.5); NEUT% 74.4 % (42.2-75.2); PLT 163 X1000 (130-400); RBC 4.11 XMIL (4.7-6.1); RDW 13.7 % (11.5-14.5); WBC 1.83 X1000 (4.8-10.8)
[2019-12-24 17:27] LABS: CALCIUM 7.8 mg/dL (8.8-10.2); CREATININE 1.7 mg/dL (0.7-1.2); MAGNESIUM 1.5 mg/dL (1.5-2.7); POTASSIUM 5.4 mmol/L (3.5-5.1)
[2019-12-24] MEDS: PROTONIX IV SCH (20:24)
[2019-12-25] MEDS: MORPHINE IV PRN ×5 (00:19→22:58)
[2019-12-25] MEDS: ZOSYN 3.375 GM in NS 50 ML IV SCH ×4 (03:00→20:47)
[2019-12-25] MEDS ORDERED: LOVENOX SUBQ SCH (09:00)
--- NOTE | 2019-12-25 09:28 | PROGRESS NOTE ---
DATE: 12/25/2019 SUBJECTIVE: Mr. Rick had a better night last night. No nausea, but no bowel activity, not passing any gas, no bowel movement. OBJECTIVE: Vital Signs: Today, temp 97.4 degrees, pulse 89, respirations 16, blood pressure 106/67. HEENT: Pupils are equal and round. Neck: No distended neck veins. Lungs: Clear anterolateral. Cardiovascular: Regular rhythm and rate, without murmur or S3. Abdomen: Soft. Absent bowel sounds on exam. NG tube in place. Urine output is 5300 mL. PROCEDURES: Exploratory laparotomy was done yesterday: Small-bowel obstruction with peritonitis, renal cell carcinoma history, exploratory laparotomy with small-bowel resection. ASSESSMENT AND PLAN: Small-bowel obstruction, history of renal cell carcinoma. Dr. Luciano did laparotomy, exploratory surgery yesterday. He discovered an eviscerated small bowel, identified dense adhesion in the left lateral flank. Took this down. It was evident that there was perforation there. Small bowel, colon, and appendix were normal. Stomach and duodenum were normal. There was another area of eviscerated small bowel, loop of small bowel stuck down in the nephrectomy bed. That was mobilized. I believe they did a [id number] functional end-to-end anastomosis, and removed a portion of the small bowel, it is my understanding. He has a nasogastric tube in still. He is on Protonix 40 mg intravenously every 24 hours. He is on Zosyn 3.375 grams intravenously every 6 hours. His white count yesterday was 1830 after surgery, and hematocrit was 42, platelet count 163,000. Electrolytes: Sodium 141, potassium 5.4, chloride 108, BUN 25, creatinine 1.7, so he had some acute kidney injury, and this appears to be improving. We will check a Chem-22 and magnesium and CBC again in the morning. cc: Eric Escoto MD
[2019-12-25] MEDS: PERIDEX MT SCH ×2 (09:48→20:47)
[2019-12-25] MEDS: NS 1,000 ML IV SCH ×3 (10:28→19:41)
--- NOTE | 2019-12-25 11:27 | GENERAL SURGERY PROGRESS NOTE ---
DATE: 12/25/2019 Having some pain, but otherwise feels some better. NG tube is in place. Not really putting much out. No fevers, no tachycardia overnight. His white count is increasing, but remains low. I have ordered him prophylactic Lovenox. Encourage to be out of bed. We will keep his NG tube and Camara catheter today. He will need to continue on antibiotics for gross peritoneal contamination. We will replete electrolytes as necessary. cc: Dayne Luciano MD
[2019-12-25] MEDS: LOVENOX SUBQ SCH (13:06)
[2019-12-25] MEDS: PROTONIX IV SCH (17:21)
[2019-12-25] MEDS: SODIUM CHLORIDE 0.9% INJ SCH (17:21)
[2019-12-26] MEDS: ZOSYN 3.375 GM in NS 50 ML IV SCH ×4 (03:00→20:33)
[2019-12-26] MEDS: MORPHINE IV PRN ×3 (05:47→20:34)
[2019-12-26] MEDS ORDERED: ZOSYN ONE (05:57)
[2019-12-26 06:25] LABS: BASO# 0.03 X1000 (0.0-0.2); BASO% 0.4 % (0.0-0.8); EOS# 0.08 X1000 (0.0-0.7); HEMATOCRIT 39.3 % (42.0-52.0); IMM GRAN# 0.18 X1000 (0.0-0.04); IMM GRAN% 2.3 % (0.0-0.5); LYMPH% 6.5 % (20.5-51.1); MCH 34.1 PG (27-31); MCHC 33.1 g/dL (33-37); MCV 103.1 FL (81-99); MONO# 0.36 X1000 (0.11-0.59); MONO% 4.7 % (1.7-9.3); MPV 10.4 FL (7.4-10.4); NEUT# 6.53 X1000 (1.4-6.5); NEUT% 85.1 % (42.2-75.2); PLT 154 X1000 (130-400); RBC 3.81 XMIL (4.7-6.1); RDW 14.1 % (11.5-14.5); WBC 7.68 X1000 (4.8-10.8)
[2019-12-26 06:43] LABS: ALB/GLOB RATIO 0.9; ALBUMIN 2.4 g/dL (3.5-5.0); CALCIUM 8.9 mg/dL (8.8-10.2); CREATININE 1.6 mg/dL (0.7-1.2); MAGNESIUM 1.9 mg/dL (1.5-2.7); POTASSIUM 5.1 mmol/L (3.5-5.1); TOTAL BILIRUBIN 1.65 mg/dL (0.20-1.00); TOTAL PROTEIN 5.2 g/dL (6.3-8.3)
[2019-12-26 06:47] LABS: LYMPHS 4 % (21-51); MONO 2 % (1-9); SEGS 88 % (42-75)
[2019-12-26] MEDS: NS 1,000 ML IV SCH ×2 (08:45→18:08)
[2019-12-26] MEDS ORDERED: HALL'S COUGH LOZENGE MT PRN (09:33)
[2019-12-26] MEDS: PERIDEX MT SCH ×2 (10:09→20:33)
[2019-12-26] MEDS: LOVENOX SUBQ SCH (12:02)
--- NOTE | 2019-12-26 12:30 | PROGRESS NOTE ---
DATE: 12/26/2019 Mr. Rick feels much better. Still has NG tube in place. He says he is passing a little bit of gas. His abdomen feels more comfortable. He is tolerating some ice chips. He remains afebrile, temperature 98 degrees, pulse 94, respirations 19, blood pressure 128/79. Pupils are equal and round. Lungs are clear in all lung rawls. Cardiovascular regular rate without murmur or S3. Urine output was 1600 mL. ASSESSMENT AND PLAN: 1. NG tube is in place, not putting much out. Not had any fevers or tachycardia. His white count is increasing, but remains low. He is on prophylactic Lovenox and encourage him to get out of bed. Keep his NG tube in and take the Camara catheter out, I think later on today is the plan. Continue antibiotics for gross peritoneal contamination and he had small bowel obstruction. History of renal cell carcinoma. Dr. Luciano did laparotomy exploratory surgery 2 days ago and discovered this serrated small bowel identified dense adhesion in the left lateral flank. 2. Review of orders. He is getting normal saline at 125 mL an hour and Zosyn at 3.375 g IV q. 6 hours, Protonix 40 mg IV q. 24 hours. cc: Eric Escoto MD
--- NOTE | 2019-12-26 12:51 | GENERAL SURGERY PROGRESS NOTE ---
DATE: 12/26/2019 SUBJECTIVE: Having some pain. No fevers. Pulse in the 90s. Blood pressure 141/79, O2 saturation is low 90s on nasal cannula. General, he is alert. His abdomen is mildly distended but soft. White count 7, hematocrit 39, creatinine is down 1.6. ASSESSMENT AND PLAN: This is a 49-year-old gentleman status post bowel resection for perforated small bowel related to adhesions and bowel obstruction. He is on Lovenox. He is on PPI. He is on Zosyn for contamination. We will keep him NPO. NG tube to suction. Continues to have high volume bilious output. Awaiting return of bowel function. cc: Dayne Luciano MD
[2019-12-26] MEDS: SODIUM CHLORIDE 0.9% INJ SCH (18:08)
[2019-12-26] MEDS: PROTONIX IV SCH (18:08)
[2019-12-27] MEDS: ZOSYN 3.375 GM in NS 50 ML IV SCH ×4 (01:04→22:39)
[2019-12-27] MEDS: NS 1,000 ML IV SCH ×2 (01:09→22:39)
[2019-12-27] MEDS ORDERED: ZOSYN ONE (05:37)
--- NOTE | 2019-12-27 10:06 | PROGRESS NOTE ---
DATE: 12/27/2019 SUBJECTIVE: Mr. Rick is feeling better. Still has NG tube in, very little drainage. No nausea. He says he is passing some gas. OBJECTIVE: Vital signs: Temp 98.5 degrees, pulse 85, respirations 17, blood pressure 169/97. HEENT: Pupils are equal and round. Lungs: Lungs are clear in all lung rawls. Cardiovascular: Regular rate without murmur or S3. No pedal edema. Input and output: Urine output was 2700 mL. ASSESSMENT AND PLAN: Status post bowel resection for perforated small bowel related to adhesions and bowel obstruction. He is on Lovenox. He is getting PPI. He is on Zosyn for contamination, so continue NPO and waiting on peristalsis to resume. cc: Eric Escoto MD
[2019-12-27] MEDS: PERIDEX MT SCH ×2 (10:18→22:39)
[2019-12-27] MEDS: LOVENOX SUBQ SCH (10:18)
--- NOTE | 2019-12-27 12:46 | HEMO/ONC PROGRESS NOTE ---
DATE: 12/27/2019 SUBJECTIVE: Mr. Rick is well known to me for a history of metastatic renal cell carcinoma. He has been well controlled on Votrient for years. His most recent scans showed no evidence of malignancy. He had progressive worsening abdominal pain and is hospitalized with small bowel obstruction. He underwent surgical resection of the perforated, inflamed small bowel with no evidence of malignancy noted on 12/24/2019. He is slowly recovering from that. REVIEW OF SYSTEMS: Complete review of systems negative, except as per HPI. ASSESSMENT AND PLAN: 1. Small bowel obstruction: Status post resection. He is slowly improving. Nasogastric tube in place. Continue current management per Dr. Luciano. 2. Metastatic renal cell carcinoma: I have reassured him that I do recommend continued holding of his Votrient in the postoperative period. We will consider restarting his Votrient in another 7 to 10 days depending on his recovery. 3. Bowel perforation: He is on Zosyn. He continues on nothing by mouth and has a nasogastric tube in place. Continue to monitor. 4. Deep vein thrombosis prophylaxis: He is on Lovenox. Continue to monitor. cc: MD Eric Valencia MD R. Tyler Harney, MD
--- NOTE | 2019-12-27 12:50 | GENERAL SURGERY PROGRESS NOTE ---
DATE: 12/27/2019 SUBJECTIVE: No fevers, no tachycardia, and no flatus. His abdomen remains mildly distended. NG tube output has been moderate. Urine output has been okay. No new labs this morning. ASSESSMENT AND PLAN: This is a 49-year-old gentleman status post small bowel perforation related to adhesions and obstruction. We will keep his NG tube and need to consider peripheral nutrition. Otherwise, I have encouraged to be out of bed and ambulating as much as possible, which he has not really been doing very much of. Camara is out. He is on prophylactic Lovenox and a PPI. Dr. Pathak saw him and I will cover for the weekend. cc: Dayne Luciano MD
[2019-12-27] MEDS: PROTONIX IV SCH ×2 (15:37→16:37)
[2019-12-27] MEDS: SODIUM CHLORIDE 0.9% INJ SCH (15:38)
[2019-12-27] MEDS: MORPHINE IV PRN (17:29)
[2019-12-27] MEDS ORDERED: STERILE WATER INJ. INJ PRN (20:01)
[2019-12-27] MEDS ORDERED: GEODON IM PRN (20:01)
[2019-12-27] MEDS ORDERED: PATIENT'S OWN MED PO SCH (21:00)
[2019-12-27] MEDS: PATIENT'S OWN MED PO SCH (22:40)
[2019-12-28] MEDS: ZOSYN 3.375 GM in NS 50 ML IV SCH ×4 (04:34→22:03)
[2019-12-28] MEDS: NS 1,000 ML IV SCH ×3 (04:34→08:02)
--- NOTE | 2019-12-28 06:51 | GENERAL SURGERY PROGRESS NOTE ---
DATE: 12/28/2019 SUBJECTIVE: Patient seems to be doing okay. He has not passed any gas. OBJECTIVE: Vital Signs: Patient is currently afebrile. Vital signs are stable. Blood pressure is a little bit elevated. General: No acute distress. Cardiovascular: Regular rate and rhythm. Lungs: Grossly clear. Abdomen: Soft. NG tube in place but output decreasing, but hypoactive bowel sounds. ASSESSMENT AND PLAN: A 49-year-old gentleman status post small-bowel resection. Postoperative state. At this time, he still has a postoperative ileus. We will start him on Clinimix at 50 mL an hour and decrease his IV fluids to 75 to compensate. We will see how he does. He is on prophylactic Lovenox and a proton pump inhibitor. We will continue to monitor him. Hopefully he will have return of bowel function here soon. cc: Henry Pathak MD
[2019-12-28] MEDS: CLINIMIX E 4.25%-5% SOLUTION 1,000 ML IV SCH (08:02)
[2019-12-28] MEDS: PERIDEX MT SCH ×2 (08:04→22:04)
[2019-12-28] MEDS: PATIENT'S OWN MED PO SCH ×2 (08:04→22:04)
[2019-12-28] MEDS ORDERED: CLOZAPINE 300 MG PO SCH (09:15)
--- NOTE | 2019-12-28 09:18 | PROGRESS NOTE ---
DATE: 12/28/2019 SUBJECTIVE: He was on the phone. He does feel a lot more comfortable. He is not really passing any gas. No bowel movement. OBJECTIVE: Vital Signs: Remains afebrile, temperature 98.7 degrees. Pulse 95, respirations 20, blood pressure 163/95. HEENT: NG tube still in place. Low output. Lungs: Clear anterolateral. Cardiovascular exam: Regular rhythm and rate. Abdomen: Soft. I do hear some bowel sounds. Extremities: No pedal edema. He is sucking on ice chips and water. ASSESSMENT AND PLAN: 1. At this time, postoperative ileus. He is status post small bowel resection. So, started him on Clinimix per Dr. Pathak yesterday at 50 mL and advanced to 75 mL an hour. He is on Lovenox and proton pump inhibitor. 2. We have put him back on his medicines for bipolar, and so he is getting his Geodon as-needed in the morning, but he is on Zosyn 3.375 grams intravenous every 6 hours, which we will continue, and normal saline at 75 mL an hour. Put him back on his clozapine 200 mg a day to see if we can put that down through his tube. Then, we will start the Votrient as we can, that is 200 mg 4 times a day. We will hold the Crestor for now and hold the Bystolic for now too. cc: Eric Escoto MD
[2019-12-28] MEDS: ZOFRAN IV PRN (09:50)
[2019-12-28] MEDS: MORPHINE IV PRN (09:50)
[2019-12-28] MEDS ORDERED: PATIENT'S OWN MED PO SCH (10:00)
[2019-12-28] MEDS: LOVENOX SUBQ SCH (12:20)
[2019-12-28] MEDS: PROTONIX IV SCH (16:02)
[2019-12-29] MEDS: NS 1,000 ML IV SCH ×2 (02:04→15:20)
[2019-12-29] MEDS: ZOSYN 3.375 GM in NS 50 ML IV SCH ×4 (03:29→22:20)
--- NOTE | 2019-12-29 06:27 | GENERAL SURGERY PROGRESS NOTE ---
DATE: 12/29/2019 SUBJECTIVE: Patient seems to be doing okay. He did say he passed a little bit of gas. OBJECTIVE: Vital Signs: Patient is currently afebrile. Vital signs stable. General: No acute distress. NG tube in place with bilious output. Cardiovascular: Regular rate and rhythm. Lungs: Grossly clear. Abdomen: Soft. Hypoactive bowel sounds. ASSESSMENT AND PLAN: A 49-year-old gentleman status post small-bowel resection. Postoperative state. At this time, I think he still has a postoperative ileus. His NG tube output, although small, seems still to be bilious. We will keep him on his Clinimix and his IV fluids until he has more definitive return of bowel function. cc: Henry Pathak MD
--- NOTE | 2019-12-29 08:11 | PROGRESS NOTE ---
DATE: 12/29/2019 SUBJECTIVE: Mr. Rick is feeling a little better. He started having the tube in. Apparently, he has passed some gas or he reported he has a couple times. His abdomen feels softer. No nausea. I think he is anxious to try and swallow and get some food. OBJECTIVE: Temperature 99.2 degrees, pulse 106, respirations 16, blood pressure 152/105. Pupils are equal and round. Lungs are clear in all lung rawls. Cardiovascular Examination: Regular rhythm and rate without murmur or S3. Urine output was 1500 mL. ASSESSMENT AND PLAN: 1. Status post small bowel resection. At this time, postoperative ileus seems to be improving. Nasogastric tube output is small and appears to be bilious. He is on Clinimix at this time. Surgery to decide when to take out the nasogastric tube. 2. History of bipolar. I put him back on his medications. We will continue the Zosyn. REVIEW OF HIS ORDERS: I do not see any change. Normal saline is going at 75 mL an hour. LABORATORY DATA: Reviewed from the . Electrolytes and CBC look good. His hematocrit was 39, hemoglobin 13. I think we will check another Chem-22 tomorrow with a magnesium and another CBC. cc: Eric Escoto MD
[2019-12-29] MEDS: PERIDEX MT SCH ×2 (09:46→22:21)
[2019-12-29] MEDS: PATIENT'S OWN MED PO SCH ×2 (09:46→22:20)
[2019-12-29] MEDS: LOVENOX SUBQ SCH (12:07)
[2019-12-29] MEDS: PROTONIX IV SCH (16:55)
[2019-12-29] MEDS: SODIUM CHLORIDE 0.9% INJ SCH (16:55)
[2019-12-29] MEDS: CLINIMIX E 4.25%-5% SOLUTION 1,000 ML IV SCH (21:36)
[2019-12-30] MEDS: NS 1,000 ML IV SCH ×2 (04:15→19:21)
[2019-12-30] MEDS: ZOSYN 3.375 GM in NS 50 ML IV SCH ×3 (04:15→18:28)
--- NOTE | 2019-12-30 06:25 | GENERAL SURGERY PROGRESS NOTE ---
DATE: 12/30/2019 SUBJECTIVE: Patient had bowel movements and passing gas. He is not sick to his stomach. OBJECTIVE: Vital Signs: Patient is currently afebrile. His vital signs are stable. General: No acute distress. Cardiovascular: Regular rate and rhythm. Lungs: Grossly clear. Abdomen: Soft. Appropriately tender. Bowel sounds auscultated. ASSESSMENT AND PLAN: A 49-year-old gentleman status post small bowel resection. Postoperative state at this time. I think his postoperative ileus is improving. We will clamp his NG tube, and let him have clear liquids. If he seems to do okay, maybe even consider removing his nasogastric tube later, but would like to keep them in place given the fact he has had some bilious output, although it has been small in amount. cc: Henry Pathak MD
[2019-12-30 07:03] LABS: BASO# 0.03 X1000 (0.0-0.2); BASO% 0.4 % (0.0-0.8); EOS# 0.06 X1000 (0.0-0.7); EOS% 0.7 % (0.0-10.0); HEMATOCRIT 39.5 % (42.0-52.0); HEMOGLOBIN 12.8 g/dL (14.0-18.0); IMM GRAN# 0.13 X1000 (0.0-0.04); IMM GRAN% 1.6 % (0.0-0.5); LYMPH# 1.12 X1000 (1.2-3.4); LYMPH% 13.5 % (20.5-51.1); MCH 32.8 PG (27-31); MCHC 32.4 g/dL (33-37); MCV 101.3 FL (81-99); MONO# 0.54 X1000 (0.11-0.59); MONO% 6.5 % (1.7-9.3); MPV 10.2 FL (7.4-10.4); NEUT# 6.39 X1000 (1.4-6.5); NEUT% 77.3 % (42.2-75.2); PLT 144 X1000 (130-400); RDW 14.2 % (11.5-14.5); WBC 8.27 X1000 (4.8-10.8)
[2019-12-30 07:04] LABS: ALB/GLOB RATIO 0.6; ALBUMIN 2.1 g/dL (3.5-5.0); CALCIUM 8.1 mg/dL (8.8-10.2); CREATININE 1.3 mg/dL (0.7-1.2); MAGNESIUM 1.9 mg/dL (1.5-2.7); POTASSIUM 4.3 mmol/L (3.5-5.1); TOTAL BILIRUBIN 0.73 mg/dL (0.20-1.00); TOTAL PROTEIN 5.5 g/dL (6.3-8.3)
[2019-12-30 07:55] LABS: BANDS 10 % (0-1); HYPOCHROM 1+; LYMPHS 10 % (21-51); MONO 14 % (1-9); SEGS 66 % (42-75)
[2019-12-30] MEDS: PERIDEX MT SCH ×2 (09:14→20:27)
[2019-12-30] MEDS: PATIENT'S OWN MED PO SCH ×2 (09:15→20:27)
--- NOTE | 2019-12-30 09:47 | PROGRESS NOTE ---
DATE: 12/30/2019 SUBJECTIVE: Mr. Rick feels better. He is tolerating a full liquid diet, and NG tube is still in place. OBJECTIVE: Vital Signs: He remains afebrile, temperature 98.6 degrees, pulse 84, respirations 16, blood pressure 129/99. HEENT: Pupils are equal and round. Lungs: Clear in all lung rawls. Cardiovascular: Regular rhythm and rate without murmur or S3. Urine output is 1600 mL. ASSESSMENT AND PLAN: 1. Postoperative ileus, status post small-bowel resection. Clamping nasogastric tube. He is tolerating full liquids. Seems like we are progressing in the right direction. 2. Bipolar. He is back on his medicines. Seems to be doing well from that standpoint. Going to continue the Zosyn 3.375 grams intravenously every 6 hours. LABORATORY DATA: Reviewed from today. White count 8270, hematocrit is 39, platelet count 144,000. Sodium 143, potassium 4.3, chloride 109, BUN 18, creatinine 1.3. His creatinine has come down nicely. At one point, it was 2.7. cc: Eric Escoto MD
[2019-12-30] MEDS: LOVENOX SUBQ SCH (13:00)
[2019-12-30] MEDS: PROTONIX IV SCH (16:58)
[2019-12-30] MEDS: MORPHINE IV PRN (20:27)
[2019-12-30] MEDS: CLINIMIX E 4.25%-5% SOLUTION 1,000 ML IV SCH (23:31)
[2019-12-31] MEDS: CLINIMIX E 4.25%-5% SOLUTION 1,000 ML IV SCH (00:37)
[2019-12-31] MEDS: ZOSYN 3.375 GM in NS 50 ML IV SCH ×4 (01:05→19:16)
[2019-12-31] MEDS: NS 1,000 ML IV SCH (01:18)
[2019-12-31] MEDS ORDERED: BYSTOLIC PO ONE (04:58)
[2019-12-31] MEDS: MORPHINE IV PRN ×2 (09:11→16:26)
[2019-12-31] MEDS: PATIENT'S OWN MED PO SCH ×2 (09:11→21:00)
[2019-12-31] MEDS: PERIDEX MT SCH ×2 (09:11→21:00)
[2019-12-31] MEDS: LOVENOX SUBQ SCH (13:48)
--- NOTE | 2019-12-31 13:57 | PROGRESS NOTE ---
DATE: 12/31/2019 SUBJECTIVE: As per the patient, he feels a bit better. He had a couple bowel movements yesterday, none today and it looks like he is passing a little bit of gas. His abdomen is still distended with decreased bowel sounds. OBJECTIVE: Vital Signs: Temperature 98.8 degrees, pulse 85, respiratory rate 16, blood pressure 120/86, oxygen saturation 98% on room air. HEENT: Head normocephalic. No trauma. PERRLA. Neck: Supple. No JVD. No masses. Central trachea. Chest: Clear to auscultation. No wheezing. No rales. Abdomen: Soft. Distended. Decreased bowel sounds. Midline wound that is covered with a dressing with some serosanguineous discharge. Really decreased bowel sounds. Extremities: No edema. No clubbing. No cyanosis. Neurological: Patient is awake alert. He is oriented. LABORATORY: WBC 8.2, hemoglobin 12.8, hematocrit 39.5, platelet 144,000, sodium 143, potassium 4.3, chloride 109, bicarbonate 24, BUN 18, creatinine 1.3, glucose 108, calcium 8.1, magnesium 1.9, albumin 2.1. ASSESSMENT AND PLAN: 1. Status post small bowel resection with postoperative ileus. It looks like he is getting better. His procedure was done on 12/24/2019 due to small bowel obstruction with peritonitis. We will continue with same management. His ileus seems to be improving a little bit. He has been placed on a liquid diet and his NG tube has been clamped. 2. Small bowel obstruction, as above. 3. Acute on chronic kidney disease, back to his baseline. 4. Metastatic renal cell carcinoma, followed by Dr. Nia Lee. 5. History of hypertension. Aware. Continue with same management for now. cc: Milton Hoyos MD
--- NOTE | 2019-12-31 17:39 | GENERAL SURGERY PROGRESS NOTE ---
DATE: 12/31/2019 SUBJECTIVE: Continues to have bowel function. Tolerating NG tube clamping. We are going to remove today. OBJECTIVE: No fevers. No tachycardia. His abdomen is soft. Incision is intact. A little bit of serosanguineous drainage from middle aspect. White count is normal at 8, hematocrit is 39. Those labs are from yesterday. Creatinine is down to 1.3. ASSESSMENT AND PLAN: A 49-year-old gentleman status post bowel resection. He is on peripheral nutrition. He is on Zosyn, Geodon intramuscular, Lovenox. Will remove his NG tube. Continue low volume clear liquids. Following his labs and electrolytes. cc: Dayne Luciano MD
[2019-12-31] MEDS: PROTONIX IV SCH (18:53)
[2020-01-01] MEDS: CLINIMIX E 4.25%-5% SOLUTION 1,000 ML IV SCH ×2 (00:44→13:06)
[2020-01-01] MEDS: ZOSYN 3.375 GM in NS 50 ML IV SCH ×4 (00:44→20:32)
[2020-01-01] MEDS: MORPHINE IV PRN ×3 (04:42→17:54)
[2020-01-01 06:55] LABS: BASO# 0.03 X1000 (0.0-0.2); BASO% 0.2 % (0.0-0.8); EOS# 0.07 X1000 (0.0-0.7); EOS% 0.6 % (0.0-10.0); HEMATOCRIT 37.4 % (42.0-52.0); HEMOGLOBIN 11.9 g/dL (14.0-18.0); IMM GRAN# 0.12 X1000 (0.0-0.04); LYMPH# 0.43 X1000 (1.2-3.4); LYMPH% 3.5 % (20.5-51.1); MCH 32.2 PG (27-31); MCHC 31.8 g/dL (33-37); MCV 101.1 FL (81-99); MONO# 1.07 X1000 (0.11-0.59); MONO% 8.6 % (1.7-9.3); NEUT# 10.74 X1000 (1.4-6.5); NEUT% 86.1 % (42.2-75.2); PLT 192 X1000 (130-400); RDW 14.3 % (11.5-14.5); WBC 12.46 X1000 (4.8-10.8)
[2020-01-01 07:19] LABS: CREATININE 1.3 mg/dL (0.7-1.2); POTASSIUM 4.2 mmol/L (3.5-5.1)
[2020-01-01] MEDS: PERIDEX MT SCH ×2 (10:04→20:33)
[2020-01-01] MEDS: BYSTOLIC PO SCH (10:04)
[2020-01-01] MEDS: PATIENT'S OWN MED PO SCH ×2 (10:05→20:33)
[2020-01-01] MEDS: LOVENOX SUBQ SCH (11:17)
--- NOTE | 2020-01-01 13:47 | PROGRESS NOTE ---
DATE: 01/01/2020 SUBJECTIVE: The patient is feeling a little bit better. As per the patient, he is passing a bit of gas. No bowel movement. The NG tube has been removed. We will continue with a liquid diet. Surgery on board. OBJECTIVE: Vital Signs: Temperature 97.4 degrees, pulse 92, respiratory rate 18, blood pressure 130/78, oxygen saturation 99 on room air. HEENT: Head normocephalic, no trauma. PERRLA. Neck: Supple. No JVD. No masses. Central trachea. Chest: Clear to auscultation. No wheezing. No rales. Abdomen: Soft, is slightly distended. Decreased bowel sounds but present. Midline wound that is covered with a dressing. No signs of active bleeding. Extremities: No edema, no clubbing, no cyanosis. Neurological: Awake, alert, oriented. LABORATORY DATA: WBC 12.4, hemoglobin 11.9, hematocrit 37.4, platelets 192,000. Sodium 141, potassium 4.2, chloride 106, bicarbonate 26, BUN 16, creatinine 1.3, glucose 112, calcium 8. ASSESSMENT AND PLAN: 1. Status post small-bowel resection with postoperative ileus, procedure done on 12/24/2019 due to small-bowel obstruction with peritonitis. We will continue with the same management. The NG tube has been removed, continue with liquid diet. 2. Small-bowel obstruction, as above. 3. Acute on chronic kidney disease, resolved, back to his baseline. 4. Metastatic renal cell carcinoma, followed by Dr. Nia Lee. 5. History of hypertension, aware. Continue with the same management for now. cc: Milton Hoyos MD
--- NOTE | 2020-01-01 17:02 | GENERAL SURGERY PROGRESS NOTE ---
DATE: 01/01/2020 SUBJECTIVE: He continues to have bowel function. No nausea or vomiting. Tolerating clear liquids after NG tube removed. No fevers. No tachycardia. OBJECTIVE: Blood pressure 132/87. His abdomen is soft and less distended. Incisions intact. There is some fat necrosis draining from the central aspect. I reviewed his labs. White count is 12, hematocrit is 37. Creatinine is down to 1.3, potassium 4.2. ASSESSMENT AND PLAN: A 49-year-old gentleman status post bowel resection for small-bowel perforation. We will continue clear liquids today. I have encouraged him to be out of bed and moving as much as possible with aggressive pulmonary toileting. I do not think he is doing a very good job of this. He is on peripheral nutrition. He is on prophylactic Lovenox and a proton pump inhibitor. We will continue to follow along. cc: Dayne Luciano MD
[2020-01-01] MEDS: PROTONIX IV SCH (18:14)
[2020-01-02] MEDS: ZOSYN 3.375 GM in NS 50 ML IV SCH ×4 (00:40→18:39)
[2020-01-02] MEDS: CLINIMIX E 4.25%-5% SOLUTION 1,000 ML IV SCH (06:28)
[2020-01-02 06:29] LABS: BASO# 0.05 X1000 (0.0-0.2); BASO% 0.4 % (0.0-0.8); HEMATOCRIT 36.6 % (42.0-52.0); HEMOGLOBIN 11.7 g/dL (14.0-18.0); IMM GRAN# 0.11 X1000 (0.0-0.04); IMM GRAN% 0.9 % (0.0-0.5); LYMPH# 0.53 X1000 (1.2-3.4); LYMPH% 4.1 % (20.5-51.1); MCH 32.6 PG (27-31); MCV 101.9 FL (81-99); MONO# 0.89 X1000 (0.11-0.59); MONO% 6.9 % (1.7-9.3); MPV 10.8 FL (7.4-10.4); NEUT# 11.33 X1000 (1.4-6.5); NEUT% 87.7 % (42.2-75.2); PLT 240 X1000 (130-400); RBC 3.59 XMIL (4.7-6.1); RDW 14.5 % (11.5-14.5); WBC 12.91 X1000 (4.8-10.8)
[2020-01-02 06:48] LABS: LYMPHS 4 % (21-51); MONO 5 % (1-9); SEGS 91 % (42-75)
[2020-01-02 07:04] LABS: CALCIUM 7.9 mg/dL (8.8-10.2); CREATININE 1.4 mg/dL (0.7-1.2); POTASSIUM 4.5 mmol/L (3.5-5.1)
[2020-01-02] MEDS ORDERED: ZOSYN ONE ×3 (08:55→12:42)
[2020-01-02] MEDS: PERIDEX MT SCH ×2 (09:42→21:05)
[2020-01-02] MEDS: BYSTOLIC PO SCH (09:42)
[2020-01-02] MEDS: PATIENT'S OWN MED PO SCH ×2 (09:43→21:06)
[2020-01-02] MEDS: MORPHINE IV PRN ×2 (09:59→21:04)
[2020-01-02] MEDS: ZOFRAN IV PRN (10:06)
[2020-01-02] MEDS: LOVENOX SUBQ SCH (11:50)
--- NOTE | 2020-01-02 13:03 | GENERAL SURGERY PROGRESS NOTE ---
DATE: 01/02/2020 SUBJECTIVE: He continues to have bowel function. He is tolerating clear liquids. Abdomen is less distended, no nausea or vomiting. No fevers. No tachycardia. His abdomen is soft. His dressings has minimal serosanguineous output. There is less erythema noted. LABORATORY DATA: White count is 12, hematocrit is 36, creatinine is 1.4. ASSESSMENT AND PLAN: A 49-year-old gentleman status post bowel resection. We will give him a soft diet today, otherwise continue physical therapy and pulmonary toileting. Suspect we can transition to oral antibiotics and let him go home in the next 48 to 72 hours. Okay to resume his home oral medications. cc: Dayne Luciano MD
--- NOTE | 2020-01-02 14:27 | PROGRESS NOTE ---
DATE: 01/02/2020 SUBJECTIVE: The patient seems to be feeling better. He is still having some abdominal distention and decreased bowel sounds, but he is passing gas. No bowel movement for the past couple of days. His diet has been advanced by the Surgery Department. He has been placed back on some of his home medication including clozapine, nebivolol, and I will add his magnesium and Votrient as well. OBJECTIVE: Vital Signs: Temperature 98.3 degrees, pulse 89, respiratory rate 18, blood pressure 133/95, oxygen saturation 98% on room air. HEENT: Head normocephalic, no trauma. PERRLA. Neck: Supple. No JVD. No masses. Central trachea. Chest: Clear to auscultation. No wheezing. No rales. Abdomen: Soft. It is slightly distended. Decreased bowel sounds, but present. Midline wound that is covered. No signs of bleeding. Extremities: No edema, no clubbing, no cyanosis. Neurological: The patient is awake, alert. He is oriented. LABORATORY DATA: WBC 12.9, hemoglobin 11.7, hematocrit 36.6, platelets 240,000. Sodium 141, potassium 4.5, chloride 102, bicarbonate 25, BUN 17, creatinine 1.4, glucose 97, calcium 7.9. ASSESSMENT AND PLAN: 1. Status post small bowel resection with postoperative ileus. The procedure has been done on 12/24/2019 due to small bowel obstruction and peritonitis. He seems to be getting better slowly. The diet has been advanced. We will continue to monitor. 2. Small bowel obstruction with peritonitis, as above. 3. Acute on chronic kidney disease, resolved. This is his baseline. 4. Metastatic renal cell carcinoma, followed by Dr. Nia Lee. I have placed this patient back on his home medications. 5. History of hypertension. Aware. We will continue with same management for now. He is on beta-blockers. cc: Milton Hoyos MD
[2020-01-02] MEDS ORDERED: PAZOPANIB HCL PO SCH (17:00)
[2020-01-02] MEDS: PROTONIX IV SCH (17:37)
[2020-01-03] MEDS: ZOSYN 3.375 GM in NS 50 ML IV SCH ×5 (00:19→19:00)
[2020-01-03] MEDS: CLINIMIX E 4.25%-5% SOLUTION 1,000 ML IV SCH (05:46)
[2020-01-03 06:41] LABS: BASO# 0.02 X1000 (0.0-0.2); BASO% 0.2 % (0.0-0.8); HEMOGLOBIN 11.7 g/dL (14.0-18.0); LYMPH# 0.44 X1000 (1.2-3.4); LYMPH% 3.8 % (20.5-51.1); MCH 32.5 PG (27-31); MCHC 31.6 g/dL (33-37); MCV 102.8 FL (81-99); MONO# 0.82 X1000 (0.11-0.59); MONO% 7.1 % (1.7-9.3); MPV 10.2 FL (7.4-10.4); PLT 325 X1000 (130-400); RDW 14.3 % (11.5-14.5); WBC 11.59 X1000 (4.8-10.8)
[2020-01-03 07:00] LABS: LYMPHS 8 % (21-51); SEGS 80 % (42-75)
[2020-01-03 07:13] LABS: CALCIUM 8.1 mg/dL (8.8-10.2); CREATININE 1.4 mg/dL (0.7-1.2); POTASSIUM 3.8 mmol/L (3.5-5.1)
[2020-01-03] MEDS: MAG-OX PO SCH (08:54)
[2020-01-03] MEDS: BYSTOLIC PO SCH (08:54)
[2020-01-03] MEDS: PERIDEX MT SCH ×2 (08:54→21:24)
[2020-01-03] MEDS: PATIENT'S OWN MED PO SCH ×2 (08:58→21:24)
[2020-01-03] MEDS: MORPHINE IV PRN ×3 (09:07→21:23)
[2020-01-03] MEDS: LOVENOX SUBQ SCH (12:38)
--- NOTE | 2020-01-03 14:25 | PROGRESS NOTE ---
DATE: 01/03/2020 SUBJECTIVE: No big changes compared with yesterday. His abdomen is still slightly distended. He is still passing gas. No bowel movements. He is tolerating his diet. Mild nausea though. I will continue following this patient closely with Surgery Department. OBJECTIVE: Vital Signs: Temperature 98.2 degrees, pulse 103, respiratory rate 18, blood pressure 131/77, oxygen saturation 100% on room air. HEENT: Head normocephalic, no trauma. PERRLA. Neck: Supple. No JVD. No masses. Central trachea. Chest: Clear to auscultation. No wheezing. No rales. Abdomen: Soft, is slightly distended. Decreased bowel sounds, but present. Midline scar that is covered. No signs of bleeding. Extremities: No edema, no clubbing, no cyanosis. Neurological examination: Patient is awake, alert, oriented. LABORATORY: WBC 11.5, hemoglobin 11.7, hematocrit 37, platelets 325. Sodium 141, potassium 3.8, chloride 104, bicarbonate 28. BUN 17, creatinine 1.4, glucose 98, calcium 8.1. ASSESSMENT AND PLAN: 1. Status post small bowel resection with postoperative ileus. The procedure has been done on 12/24/2019 due to small bowel obstruction and peritonitis. He seems to be getting better slowly. The diet has been advanced. We will continue to monitor. No bowel movement so far. 2. Small bowel obstruction with peritonitis, as above. 3. Acute on chronic kidney disease, resolved. Back to his baseline. 4. Metastatic renal cell carcinoma followed by Dr. Nia Lee. I have placed this patient back on his medications. 5. History of hypertension, aware, stable. Continue with same management. cc: Milton Hoyos MD
[2020-01-03] MEDS: PROTONIX IV SCH (16:33)
--- NOTE | 2020-01-03 17:39 | GENERAL SURGERY PROGRESS NOTE ---
DATE: 01/03/2020 SUBJECTIVE: Doing well. His bowels are functioning. No nausea vomiting. He is tolerating clear liquids. OBJECTIVE: On exam his incision is intact. Minimal fat necrosis, serosanguineous drainage. No fevers. No tachycardia. His abdomen is soft, less distended. I reviewed his labs. ASSESSMENT AND PLAN: A 49-year-old gentleman status post bowel resection. We will advance diet to soft. Plan for possibly home tomorrow. Remove the kwabena in a week. I have given detailed written instructions with Dr. Narvaez. I will follow my patient over the weekend. cc: Dayne Luciano MD
[2020-01-03] MEDS: ZOFRAN IV PRN (21:23)
[2020-01-04] MEDS: ZOSYN 3.375 GM in NS 50 ML IV SCH ×2 (01:13→07:55)
[2020-01-04] MEDS: CLINIMIX E 4.25%-5% SOLUTION 1,000 ML IV SCH ×2 (01:13→01:14)
[2020-01-04] MEDS: MORPHINE IV PRN ×2 (08:13→11:56)
[2020-01-04] MEDS: MAG-OX PO SCH (08:17)
[2020-01-04] MEDS: BYSTOLIC PO SCH (08:18)
[2020-01-04] MEDS: PERIDEX MT SCH (08:20)
[2020-01-04] MEDS: PATIENT'S OWN MED PO SCH (08:27)
--- NOTE | 2020-01-04 10:12 | GENERAL SURGERY PROGRESS NOTE ---
DATE: 01/04/2020 Mr. Rick took his solid food satisfactory. His bowels have moved. He denies any complaints. His hemodynamics are good. His wound has some small openings, but appears acceptably clean. Dr. Luciano has recommended that he go home on p.o. antibiotics. We will allow him to go home. He will call the office Monday for an appointment for the end of the week. We discussed activity and wound care. cc: Darian Narvaez MD
[2020-01-04] MEDS: LOVENOX SUBQ SCH (11:57)
[2020-01-04 12:02] VITALS: BP 130/83
--- NOTE | 2020-01-04 17:23 | DISCHARGE SUMMARY ---
ADMISSION DATE: 12/22/2019 DISCHARGE DATE: 01/04/2020 DISCHARGE DIAGNOSES: 1. Status post small bowel resection with postoperative ileus. 2. Small bowel obstruction with peritonitis. 3. Acute on chronic kidney disease, resolved. 4. Metastatic renal cell carcinoma, followed by Dr. Nia Lee. 5. History of hypertension. PROCEDURES PERFORMED: 1. Chest x-ray dated 12/22/2019. Impression: Negative exam. 2. Abdomen and pelvis CT scan dated 12/22/2019. Impression: High grade proximal small-bowel obstruction, the transition point he has in the anterior lateral left upper quadrant. 1. Chest x-ray dated 12/22/2019. Impression: NG tube in good position. 2. Abdomen x-ray dated 12/23/2019. Impression: No visible abnormality. 3. Abdomen x-ray dated 12/24/2019. Impression: No visible abnormality. 4. Exploratory laparotomy with small-bowel resection due to small bowel obstruction with peritonitis dated 12/24/2019. 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 Nia Lee. He presented to the emergency room from the [facility] walk-in clinic complaining of right lower quadrant pain for 2 days with nausea, vomiting. He was found to have high-grade proximal small-bowel obstruction with a transition the anterior lateral left upper quadrant on CT scan. The NG tube has been inserted and Angel Roberson was consulted. Actually this patient needed to have a procedure done on 12/24/2019 due to the small bowel obstruction with signs of peritonitis, and they did an exploratory laparotomy with small-bowel resection. After the procedure this patient had a postoperative ileus that has been getting better slowly on a daily basis. Today, he has been evaluated by surgery department. He took his solid food satisfactorily. His bowel has moved. He denies any complaints. He seems to be hemodynamically stable. Surgery department basically cleared this patient to go home and they will follow this patient up in 1 week. PHYSICAL EXAMINATION: Vital signs: Temperature 98.1 degrees, pulse 83, respiratory rate 16, blood pressure 130/83, oxygen saturation 100% on room air. HEENT: Head normocephalic no trauma PERRLA. Neck: Supple. No JVD. No masses. Central trachea. Chest: Clear to auscultation. No wheezing. No rales. Abdomen: Soft, slightly distended. Positive bowel sounds, slightly decreased. Midline scar is covered with no signs of bleeding or infection. Extremities: No edema, no clubbing, no cyanosis. Neurological: The patient is awake alert he is oriented. No focal deficits. LABORATORY: Lab work from yesterday: WBC 11.5 hematocrit, hemoglobin 11.7, hematocrit 37, platelets 325. Sodium 141, potassium 3.8, chloride 104, bicarbonate 28, BUN 17, creatinine 1.4, glucose 98, calcium 8.1. DISCHARGE MEDICATIONS: 1. Augmentin 875/125 mg tablet p.o. b.i.d. 2. Clozapine 300 mg p.o. daily. 3. Ferrous sulfate 325 mg p.o. daily. 4. Magnesium 400 mg p.o. daily. 5. Bystolic 10 mg p.o. daily. 6. Zofran 8 mg p.o. q 6 to 8 hours as needed,. 7. Crestor 10 mg p.o. daily. 8. Tramadol 50 mg p.o. q. 6 hours as needed. TIME SPENT DISCHARGING PATIENT: 35 minutes. cc: Milton Hoyos MD
== END 2020-01-04 12:54 | disposition home or self-care (01) | DRG 329 ==
LOC: ED 14:39 → 4N 19:32 → SUATTDRO 19:32
PROVIDERS: ATTEND Internal Medicine